=== PATIENT | male | born 1955 | race Caucasian/White ===

== ENCOUNTER 2016-10-23 06:55 | Observation (INO) ==
--- NOTE | 2016-10-23 07:14 | Emergency Department Note ---
Disposition Clinical Impression: Hyponatremia UTI (urinary tract infection) Qualifiers: Urinary tract infection type: acute cystitis Hematuria presence: without hematuria Qualified Code(s): N30.00 - Acute cystitis without hematuria Abdominal pain Qualifiers: Abdominal location: generalized Qualified Code(s): R10.84 - Generalized abdominal pain Disposition: Admitted As Inpatient Condition: Good Referrals: Aliyah Rojas, [employer] [Primary Care Provider] - Forms: Work/School Release, ED Satisfaction Letter Time of Disposition: 08:17 Abdominal Pain HPI - General Chief Complaint: ED Abdominal Pain Stated Complaint: abd pain left to right into back Time Seen by Provider: 10/23/16 07:10 Source: patient Mode of arrival: ambulatory Limitations: no limitations Nursing Notes Reviewed: Yes Vital Signs Reviewed: Yes - History of Present Illness HPI Narrative: 61-year-old white male with abdominal pain for about a half weeks. He indicates the pain is over his entire abdomen. He describes as a soreness. Constant. He states that he does not sleep much at night because of the pain. No change with food intake. He states his appetite has been decreased. No frequency or urgency. No vomiting, diarrhea, or constipation. Pt Subjective Complaint: abdominal pain Onset (ago): week(s) Consistency: constant (Chery a half) Location: diffuse Pain Severity: moderate Pain Scale: 6 Quality: other (Soreness) Radiation: none Migration to: no migration Improves with: nothing Worsens with: nothing Associated symptoms: Reports: denies other symptoms Treatments prior to arrival: none - Related Data Allergies Allergy/AdvReac Type Severity Reaction Status Date / Time No Known Allergies Allergy Verified 10/23/16 06:57 All systems ED: reviewed and negative except as stated. Constitutional: Denies: fever, chills Cardiovascular: Denies: chest pain Respiratory: Denies: cough, dyspnea Gastrointestinal: Reports: abdominal pain. Denies: nausea, vomiting, diarrhea, constipation Genitourinary: Denies: urgency, dysuria, frequency Musculoskeletal: Denies: back pain Abdominal Pain PMH - Past Medical History Medical history: Reports: coronary artery disease, GERD, hypertension Psychiatric history: Reports: no psych history - Social History Smoking status: Former smoker Alcohol use: Reports: occasionally Drug use: Reports: none Physical Exam - General Limitations: no limitations General appearance: alert, in no apparent distress - Head Head exam: atraumatic, normocephalic - Eye Eye exam: Present: PERRL, EOMI. Absent: scleral icterus, conjunctival injection - ENT ENT exam: normal oropharynx, mucous membranes moist - Neck Neck exam: Present: normal inspection, full ROM, trachea midline. Absent: lymphadenopathy - Respiratory Respiratory exam: Present: normal lung sounds bilaterally. Absent: respiratory distress, wheezes - Cardiovascular Cardiovascular exam: Present: regular rate, normal rhythm, normal heart sounds - Abdominal Exam Abdominal exam: Present: soft, tenderness, normal bowel sounds. Absent: distention, guarding, rebound, organomegaly, mass - Extremities Exam Extremities exam: Present: normal inspection, full ROM, normal capillary refill. Absent: calf tenderness - Back Exam Back exam: Absent: CVA tenderness (R), CVA tenderness (L) - Neurological Exam Neurological exam: Present: alert, oriented X3, normal gait - Psychiatric Psychiatric exam: Present: normal affect, normal mood - Skin Skin exam: Present: warm, dry, intact, normal color. Absent: cyanosis, diaphoresis Course - Reevaluation(s) Reevaluation #1: Discussed with Dr. Pang. He is accepted the patient for admission. Time: 08:15 Vital Signs Temperature 97.6 F 10/23/16 06:57 Pulse Rate 110 10/23/16 06:57 Respiratory Rate 18 10/23/16 06:57 Blood Pressure 127/83 10/23/16 06:57 O2 Sat by Pulse Oximetry 99 10/23/16 06:57 Temperature 97.6 F 10/23/16 07:00 Pulse Rate 110 10/23/16 07:00 Respiratory Rate 18 10/23/16 07:00 Blood Pressure 127/83 10/23/16 07:00 O2 Sat by Pulse Oximetry 99 10/23/16 07:00 Oxygen Delivery Oxygen Delivery Room Air Abdominal Pain - MDM Narrative Medical decision making narrative: Differential includes but is not limited to irritable bowel syndrome, pancreatitis, cholecystitis, pancreatitis, small bowel obstruction, gastritis, peptic ulcer disease. The patient has a significantly decrease sodium of 115. This is likely the cause of his diffuse discomfort in his abdomen and back, although I cannot rule out positive urine as a contributing factor. He also has cholelithiasis, and I cannot rule out biliary colic as a contributing factor. His sodium is certainly low enough that he reports hospitalization and sodium replacement. The etiology of his hyponatremia is likely related to the hydrochlorothiazide that he is currently taking. Dr. Pang. He is accepted the patient for admission. IV normal saline has been initiated. Rocephin has been ordered. - Lab Data Lab results reviewed: Yes I reviewed the patient's lab results. Result diagrams: 10/23/16 07:25 10/23/16 07:25 Lab Results 10/23/16 10/23/16 10/23/16 Range/Units 07:25 07:25 07:31 WBC 7.5 (4.3-11.1) K/mcL RBC 3.53 L (4.19-5.50) M/mcL Hgb 12.5 L (12.9-16.9) g/dL Hct 33.8 L (37.5-50.1) % MCV 95.8 (83.0-100.0) fL MCH 35.4 H (28.0-33.3) pg MCHC 37.0 H (31.6-35.5) g/dL RDW 12.8 (11.5-14.5) % Plt Count 152 (140-400) K/mcL MPV 7.9 L (9.4-12.4) fL Immature Gran % 0.7 (0-4) % Seg Neutrophils % 74.4 % Lymphocytes % 12.4 % Monocytes % 10.4 % Eosinophils % 1.6 % Basophils % 0.5 % Neutrophils # 5.6 (1.6-8.9) K/mcL Lymphocytes # 0.9 (0.6-4.6) K/mcL Monocytes # 0.8 (0.0-1.3) K/mcL Eosinophils # 0.1 (0.0-0.6) K/mcL Basophils # 0.0 (0.0-0.2) K/mcL Sodium 115 L* (136-145) mEq/L Potassium 4.0 (3.5-4.5) mEq/L Chloride 80 L (98-109) mEq/L Carbon Dioxide 22 (19-29) mEq/L BUN 10 (8-26) mg/dL Creatinine 0.64 L (0.72-1.25) mg/dL Est GFR ( Amer) > 60 (> 60) Est GFR (Non-Af Amer) > 60 (> 60) BUN/Creatinine Ratio 16 (6-26) Glucose 100 H (70-99) mg/dL Calculated Osmolality 239 L (280-300) Calcium 8.8 (8.6-10.8) mg/dL Total Bilirubin 1.7 H (0.2-1.2) mg/dL AST 52 H (5-34) Units/L ALT 33 (0-55) Units/L Alkaline Phosphatase 57 (38-126) Units/L Serum Total Protein 6.8 (6.0-8.3) g/dL Albumin 3.4 L (3.5-5.0) g/dL Globulin 3.4 (2.4-3.5) g/dL Albumin/Globulin Ratio 1.0 L (1.1-2.2) Lipase 44 (8-78) Units/L Urine Color Yellow (Yellow) Urine Clarity Clear (Clear) Urine pH 6.5 (5.0-8.0) pH Units Ur Specific [place] <= 1.005 L (1.010-1.025) Urine Protein Negative (Neg-Trace) mg/dL Urine Glucose (UA) Normal (Normal) mg/dL Urine Ketones Trace H (Negative) mg/dL Urine Blood Negative (Negative) Urine Nitrite Positive A (Negative) Urine Bilirubin Negative (Negative) Urine Urobilinogen Normal (Normal) mg/dL Ur Leukocyte Esterase Negative (Negative) Urine Microscopic WBC 0-3 (0-3) per hpf Ur Squamous Epith Cells Few (None-Few) per lpf Urine Bacteria Few (None-Few) per hpf Urine Mucus Few (Few) Ur Culture Indicated? YES A (NO) - Radiology Data Radiology results reviewed: Yes I reviewed the patient's radiology results. ITS Impressions Abdomen/Pelvis CT 10/23/16 07:11 IMPRESSION: Nodular contour of the liver which can be seen in cirrhosis. Cholelithiasis without evidence of acute cholecystitis. Mild edema within the mesentery of the lower anterior abdomen slightly more prominent on the right. No colonic wall thickening or other findings to suggest underlying colitis. Skin thickening along the anterior lower abdominal wall with mild inflammatory change of underlying fat. Findings may represent a cellulitis. Small fat containing umbilical hernia. Diverticulosis without evidence of acute diverticulitis. D/ / Nivia Melendez MD / Nivia Melendez MD Interpreting Provider: Nivia Melendez MD
[2016-10-23 07:31] LABS: Basophils % 0.5 %; Eosinophils # 0.1 K/mcL (0.0-0.6); Eosinophils % 1.6 %; Hematocrit 33.8 % (37.5-50.1); Hemoglobin 12.5 g/dL (12.9-16.9); Immature Granulocytes % 0.7 % (0-4); Lymphocytes # 0.9 K/mcL (0.6-4.6); Lymphocytes % 12.4 %; Mean Corpuscular Hemoglobin 35.4 pg (28.0-33.3); Mean Corpuscular Volume 95.8 fL (83.0-100.0); Mean Platelet Volume 7.9 fL (9.4-12.4); Monocytes # 0.8 K/mcL (0.0-1.3); Monocytes % 10.4 %; Neutrophils # 5.6 K/mcL (1.6-8.9); Platelet Count 152 K/mcL (140-400); Red Blood Count 3.53 M/mcL (4.19-5.50); Red Cell Distribution Width 12.8 % (11.5-14.5); Segmented Neutrophils % 74.4 %
[2016-10-23 07:46] LABS: Bilirubin,Urine Negative (Negative); Blood,Urine Negative (Negative); Clarity,Urine Clear (Clear); Color,Urine Yellow (Yellow); Glucose,Urine (UA) Normal (Normal); Ketones,Urine Trace mg/dL (Negative); Leukocyte Esterase,Urine Negative (Negative); Nitrite,Urine Positive (Negative); PH,Urine 6.5 pH Units (5.0-8.0); Protein,Urine Negative (Neg-Trace); Specific Gravity,Urine <= 1.005 (1.010-1.025); Urobilinogen,Urine Normal (Normal)
[2016-10-23 07:52] LABS: Alanine Aminotransferase 33 Units/L (0-55); Albumin 3.4 g/dL (3.5-5.0); Alkaline Phosphatase 57 Units/L (38-126); Aspartate Amino Transferase 52 Units/L (5-34); BUN/Creatinine Ratio 16 (6-26); Bilirubin,Total 1.7 mg/dL (0.2-1.2); Blood Urea Nitrogen 10 mg/dL (8-26); Calcium 8.8 mg/dL (8.6-10.8); Carbon Dioxide 22 mEq/L (19-29); Chloride 80 mEq/L (98-109); Globulin 3.4 g/dL (2.4-3.5); Glucose 100 mg/dL (70-99); Lipase 44 Units/L (8-78); Osmolality,Calculated 239 (280-300); Total Protein 6.8 g/dL (6.0-8.3); eGFR For African Americans > 60 (> 60); eGFR For Non-African Americans > 60 (> 60)
[2016-10-23 07:55] LABS: Sodium 115 mEq/L (136-145)
[2016-10-23 07:56] LABS: WBC,Urine 0-3 per hpf (0-3)
[2016-10-23 07:57] LABS: Bacteria,Urine Few per hpf (None-Few); Mucus,Urine Few (Few); Squamous Epithelial Cell,Urine Few per lpf (None-Few)
[2016-10-23] MEDS ORDERED: 0.9 % Sodium Chloride 1,000 ML IVC SCH ×3 (08:15→08:38)
[2016-10-23] MEDS ORDERED: Naloxone 0.4 MG/ML INJ IVP PRN (08:38)
[2016-10-23] MEDS: 0.9 % Sodium Chloride 1,000 ML IVC SCH (13:28)
--- NOTE | 2016-10-23 14:15 | Internal Med History&Physical ---
Date of Encounter: 10/23/16 Time of Encounter: 12:15 Assessment and Plan (1) Abdominal pain Current visit: Yes Status: Acute Etiology not obvious at this time. There seems to be at least some abdominal wall component. Continue home dose of Percocet at this time. Qualifiers: Abdominal location: generalized Qualified Code(s): R10.84 - Generalized abdominal pain (2) Hyponatremia Current visit: Yes Status: Acute We will give normal saline and hold HCTZ. Recheck labs in a.m. (3) Anemia Current visit: Yes Status: Acute We will order anemia testing in a.m. Qualifiers: Anemia type: unspecified type Qualified Code(s): D64.9 - Anemia, unspecified Internal Medicine - H&P: HPI Chief complaint: Abdominal pain Admitted From: Home Plans for Post Hospital Care: Home History of present illness: Mr. Chauhan is a 61 year old male who came to the emergency room stating he had abdominal discomfort onset approximately 2 weeks previous. He describes it as a mid abdominal pain that radiated around his sides to his back. When it did not improve and seemed to be worsening slightly he decided to come to emergency room. He was evaluated and found to have hyponatremia with sodium level 115. He was admitted to [facility] floor for ongoing care needs. He denies previous similar pains. He reports no change in his bowel movements or appetite. He has had no injury or trauma. Denies disorders of his liver gallbladder or exocrine pancreas. Past Med Surg Social Fam HX - Past Medical History Medical history: coronary artery disease, CVA, GERD, hypertension, myocardial infarction Psychiatric history: no psych history - Social History Smoking Status: Former smoker Smokeless Tobacco Status: No Alcohol use: occasionally Drug use: none Internal Medicine - H&P: Meds Clopidogrel [Plavix] 75 PO DAILY 10/23/16 [History] Hydrochlorothiazide 25 mg PO DAILY 10/23/16 [History] Lisinopril [Zestril] 2.5 mg PO DAILY 10/23/16 [History] Metoprolol Tartrate [Metoprolol Tartrate] 50 PO QID 10/23/16 [History] Nitroglycerin [Nitrostat] 0.4 mg SL 10/23/16 [History] Oxycodone HCl/Acetaminophen [Percocet 10-325 mg Tablet] 1 each PO Q4HR PRN 10/23 [History] PredniSONE 10 mg PO BIDWM 10/23/16 [History] Ranitidine HCl [Zantac] 300 mg PO BID 10/23/16 [History] Allergies tramadol [From Ultram] Adverse Reaction (Verified 10/23/16 09:57) Dry Mucus Membranes All Systems PM: A 10-system review of systems was performed and is negative for pertinent findings except as documented above in the HPI. Review of systems: Gen.: He states his weight has fluctuated based on quantity of prednisone use. Cardiovascular: He has history of hypertension. He has known ASHD status post AR 2003 with 3 stents placed. He denies heart catheter since stents were placed. He denies chest pains on exertion, DVT or pulmonary emboli Respiratory: He is a lifelong nonsmoker except for occasional cigar. He denies known chronic lung disease. GI: As per history of present illness : He thinks he may have had a kidney stone in the distant past. He denies other kidney bladder prostate disorders Neurologic: He states he had a stroke 2006 but had complete recovery without any permanent neurologic deficit. He denies seizures or other neurologic problems Endocrine: He reports he was borderline diabetic when he was taking steroids the past and gained weight. He also had hyperlipidemia that occurred at this time. He states both of these improved with reduction in steroids and weight loss. He denies thyroid disease. [place] skeletal: He claims a diagnosis of rheumatoid arthritis and ankylosing spondylitis. Review of labs show negative RA and CCP on 05/22/2014. He was HLA -B27 negative. He does complain of degenerative disc disease. Hematology/oncology: He had anemia on emergency room labs but he was unaware of this. He denies internal malignancies. Psychiatric: He denies anxiety depression or other mental health issues. - Constitutional Vitals: Temp Pulse Resp BP Pulse Ox 97.7 F 63 20 159/66 94 10/23/16 09:30 10/23/16 09:30 10/23/16 09:30 10/23/16 09:30 10/23/16 09:30 Exam: Gen.: He is well-developed well-nourished male appears in no severe distress at present time HEENT: Head is atraumatic and normocephalic. Eyes: EOMI. There is no scleral icterus. Mouth: Mucosa is moist. Neck: Supple and nontender. There is no thyromegaly or adenopathy noted. Heart: Regular without murmurs gallops or ectopics. Lungs: No wheezes or crackles are heard. Abdomen: No masses or guarding are noted. There is mild tenderness to palpation diffusely. Extremities: There is 1+ edema of the dorsum of the feet bilaterally. Dorsalis pedis and posttibial pulses are not palpable because of the edema. He does not have classic rheumatoid arthritis changes of his hands. Neurologic: Mental status: He is talkative and a good historian. Cranial nerves : Smile is symmetric. Forehead wrinkles bilaterally. Tongue protrudes midline. EOMI. Motor: There is no pronator drift. Cerebellar: Finger to nose is intact bilaterally. Skin: Warm and dry Internal Med - H&P Results - Labs CBC & Chem 7: 10/23/16 07:25 10/23/16 07:25
[2016-10-23] MEDS: *HR* OxyCODONE/APAP 10/325 TABLET PO PRN ×2 (15:08→19:58)
[2016-10-23] MEDS: Famotidine 20 MG TABLET PO SCH (20:00)
[2016-10-24] MEDS: 0.9 % Sodium Chloride 1,000 ML IVC SCH (00:09)
[2016-10-24] MEDS: *HR* OxyCODONE/APAP 10/325 TABLET PO PRN ×2 (01:41→07:09)
[2016-10-24 06:11] LABS: Basophils % 0.5 %; Eosinophils # 0.1 K/mcL (0.0-0.6); Eosinophils % 1.1 %; Hematocrit 34.4 % (37.5-50.1); Hemoglobin 12.2 g/dL (12.9-16.9); Immature Granulocytes % 0.6 % (0-4); Lymphocytes # 0.6 K/mcL (0.6-4.6); Lymphocytes % 9.2 %; Mean Corpuscular HGB Conc 35.5 g/dL (31.6-35.5); Mean Corpuscular Hemoglobin 35.4 pg (28.0-33.3); Mean Corpuscular Volume 99.7 fL (83.0-100.0); Mean Platelet Volume 7.8 fL (9.4-12.4); Monocytes # 0.7 K/mcL (0.0-1.3); Monocytes % 10.8 %; Platelet Count 152 K/mcL (140-400); Red Blood Count 3.45 M/mcL (4.19-5.50); Red Cell Distribution Width 13.6 % (11.5-14.5); Segmented Neutrophils % 77.8 %
[2016-10-24 06:28] LABS: Alanine Aminotransferase 36 Units/L (0-55); Albumin 3.4 g/dL (3.5-5.0); Albumin/Globulin Ratio 0.9 (1.1-2.2); Alkaline Phosphatase 59 Units/L (38-126); Aspartate Amino Transferase 56 Units/L (5-34); BUN/Creatinine Ratio 10 (6-26); Bilirubin,Total 0.9 mg/dL (0.2-1.2); Blood Urea Nitrogen 6 mg/dL (8-26); Calcium 8.8 mg/dL (8.6-10.8); Carbon Dioxide 23 mEq/L (19-29); Chloride 93 mEq/L (98-109); Globulin 3.6 g/dL (2.4-3.5); Glucose 116 mg/dL (70-99); Osmolality,Calculated 263 (280-300); Potassium 4.1 mEq/L (3.5-4.5); Sodium 127 mEq/L (136-145); eGFR For African Americans > 60 (> 60); eGFR For Non-African Americans > 60 (> 60)
[2016-10-24 06:42] VITALS: BP 132/66
--- NOTE | 2016-10-24 08:33 | Discharge Summary ---
Date of Encounter: 10/25/16 Time of Encounter: 08:28 - Discharge Diagnosis (1) Hyponatremia Priority: Primary Status: Chronic Comments: Pt with history of chronic hyponatremia that was significantly worse than baseline with a serum sodium of 115 at time of presentation. This was thought to be contributing factor of underlying abdominal pain. Thiazide was held and NS administered. Sodium improved to 127 on day of discharge, which was approaching patient baseline of 130-134. Pt was symptomatically improved and eager for discharge. Will hold thiazide at discharge. Importance of healthy diet with avoidance of excess fluids and alcohol discussed. Recommend repeat renal panel in 1 week by PCP to document stability of hyponatremia. (2) UTI (urinary tract infection) Priority: Secondary Status: Resolved Comments: UA consistent with UTI given positive nitrate. Urine culture negative. Will d/c on cipro for 5 additional days to complete a 7 day course. Qualifiers: Urinary tract infection type: acute cystitis Hematuria presence: without hematuria Qualified Code(s): N30.00 - Acute cystitis without hematuria (3) Hypertension Priority: Secondary Status: Chronic Comments: Fair control while admitted. Will increase lisinopril to 5mg given thiazide will be held secondary to hyponatremia. Pt to call PCP if BP > 140/90 on regular basis. Qualifiers: Hypertension type: essential hypertension Qualified Code(s): I10 - Essential (primary) hypertension (4) Abdominal pain Priority: Secondary Status: Acute Comments: Resolved with treatment of UTI and resolution of significant hyponatremia. There was some non-specific signs on inflammation noted on CT scan. Exam is negative for any evidence of cellulitis. Given pt is symptomatically improved, he will be discharged. If symptoms re-occur, he is to contact his PCP for further evaluation. Qualifiers: Abdominal location: generalized Qualified Code(s): R10.84 - Generalized abdominal pain - Discharge Medications Prescriptions: Ciprofloxacin HCl [Cipro] 500 mg PO BID #10 tablet Lisinopril [Zestril] 5 mg PO DAILY #30 tablet Home Medications: Clopidogrel [Plavix] 75 PO DAILY 10/23/16 [History] Nitroglycerin [Nitrostat] 0.4 mg SL 10/23/16 [History] Oxycodone HCl/Acetaminophen [Percocet 10-325 mg Tablet] 1 each PO Q4HR PRN 10/23 [History] Ranitidine HCl [Zantac] 300 mg PO BID 10/23/16 [History] Ciprofloxacin HCl [Cipro] 500 mg PO BID #10 tablet 10/24/16 [Rx] Lisinopril [Zestril] 5 mg PO DAILY #30 tablet 10/24/16 [Rx] Metoprolol [Lopressor] 50 mg PO TID tablet 10/24/16 [Rx] Allergies/Adverse Reactions: Allergies tramadol [From Ultram] Adverse Reaction (Verified 10/23/16 09:57) Dry Mucus Membranes Procedures/tests Complete & Pending: ITS Impressions Abdomen/Pelvis CT 10/23/16 07:11 IMPRESSION: Nodular contour of the liver which can be seen in cirrhosis. Cholelithiasis without evidence of acute cholecystitis. Mild edema within the mesentery of the lower anterior abdomen slightly more prominent on the right. No colonic wall thickening or other findings to suggest underlying colitis. Skin thickening along the anterior lower abdominal wall with mild inflammatory change of underlying fat. Findings may represent a cellulitis. Small fat containing umbilical hernia. Diverticulosis without evidence of acute diverticulitis. D/ / Nviia Melendez MD / Nivia Melendez MD Interpreting Provider: Nivia Melendez MD - Notes to Outpatient Provider Recommend repeat renal panel in 1 week to document stability of serum sodium off thiazide. Date of admission: 10/23/16 08:27 Primary care physician: Aliyah Rojas CNP Consults: None Discharging clinician: Jerod Perez Anticipated date of discharge: 10/24/16 - Patient Status Disposition: Home, Self-Care Condition: Good Functional capacity at discharge: independent ambulation Overall status at discharge: patient is back to baseline - Discharge Instructions Instructions: Urinary Tract Infection in Men (DC), Hyponatremia (DC) Follow Up With: Aliyah Rojas CNP [Primary Care Provider] - 10/29/16 4:30 pm - Diet and Activity Activity: increase activity as tolerated Diet: advance to your usual diet Interval History: Pt has subsequently improved over night and is eager for discharge home. No further abdominal pain. He is ambulating and tolerating po. BMs normal. Hospital course: Mr. Chauhan is a 61 year old male who was admitted from the ER for abdominal pain attributed to hyponatremia and UTI. CT abd/pelvis was performed in ER. His HCTZ was held and NS given along with ceftriaxone for his UTI. Pt subsequently improved with sodium near baseline on time of discharge. Pt was advised to f/u with PCP in 1 week for repeat renal panel and BP check. - Time Spent with Patient Total time spent providing and/or coordinating discharge services: Less than 30 minutes - Constitutional Vitals: Temp Pulse Resp BP Pulse Ox 97.6 F 62 16 132/66 95 10/24/16 06:40 10/24/16 06:40 10/24/16 06:40 10/24/16 06:40 10/24/16 06:40 Exam: Gen: Lying in bed, NAD HEENT: NC, AT Neck: Trachea midline, no mass Pulm: No respiratory distress, CTAB CV: Normal S1 and S2, RRR Abdomen: Soft, ND, NT Ext: No C/C/E Neuro: No appreciable motor/sensor deficits Skin: Warm and dry, no rash Psych: A&Ox3
[2016-10-24] MEDS: Famotidine 20 MG TABLET PO SCH (09:13)
[2016-10-24 10:17] LABS: % Iron Saturation 10 % (20-55); Iron 34 mcg/dL (65-175); Transferrin 246 mg/dL (174-364)
[2016-10-24 11:05] LABS: Ferritin 471 ng/ml (22-275)
[2016-10-24 14:45] LABS: Folate 10.2 ng/mL (7.0-31.4)
== END 2016-10-24 11:27 | disposition home or self-care (01) ==
LOC: EMEROOPIK 06:55 → INPPIK 06:55
PROVIDERS: ADMIT Internal Medicine; ATTEND Internal Medicine

== ENCOUNTER 2016-11-04 13:18 | Inpatient (IN) ==
[2016-11-04] MEDS ORDERED: 0.9 % Sodium Chloride 1,000 ML IVC ONE (14:03)
[2016-11-04] MEDS ORDERED: Ampicillin/Sulbactam 3,000 MG in 0.9 % Sodium Chloride Mini Bag 100 ML IVPB ONE (14:03)
[2016-11-04] MEDS ORDERED: Ondansetron 4 MG/2 ML VIAL IVP ONE (14:05)
--- NOTE | 2016-11-04 14:13 | Emergency Department Note ---
Disposition Clinical Impression: Cellulitis, Has run out of medications Disposition: Admitted As Inpatient Condition: Fair Referrals: Aliyah Rojas, COLLATERAL CLERK [Primary Care Provider] - Forms: ED Satisfaction Letter Time of Disposition: 14:13 (dustin miller) Skin/Abscess/FB HPI Chief complaint: ED Skin/Abscess/Foreign Body Stated complaint: redness , swelling , drainage to feet/legs Time Seen by Provider: 11/04/16 13:45 Source: patient Mode of arrival: ambulatory Limitations: physical limitation Nursing Notes Reviewed: Yes Vital Signs Reviewed: Yes HPI Narrative: Lateral lower extremity swelling and edema pitting difficulty walking patient got drainage from the feet and the legs in addition the patient tells me that he is a narcotic at home but has not been taking in addition to this patient states minimal pain medications while seen by Dr. myers next week Pt Subjective Complaint: lesion, discoloration Tetanus Up to Date: yes Location: LLE, RLE Severity: moderate, severe Severity scale (1-10): 8 Quality: burning, stabbing Consistency: constant Improves with: none Worsens with: none Context: none Associated symptoms: Reports: arthralgias, myalgias. Denies: fever, chills, rigors, itching, nausea, vomiting, malaise, cough, shortness of breath Treatments prior to arrival: antibiotic, prescription analgesic Home Medications Medication Instructions Recorded Confirmed Clopidogrel [Plavix] 75 PO DAILY 10/23/16 Nitroglycerin [Nitrostat] 0.4 mg SL 10/23/16 Oxycodone HCl/Acetaminophen 1 each PO Q4HR PRN 10/23/16 10/23/16 [Percocet 10-325 mg Tablet] Ranitidine HCl [Zantac] 300 mg PO BID 10/23/16 11/04/16 Previous Rx's Medication Instructions Recorded Lisinopril [Zestril] 5 mg PO DAILY #30 tablet 10/24/16 Metoprolol [Lopressor] 50 mg PO TID tablet 10/24/16 Allergies Allergy/AdvReac Type Severity Reaction Status Date / Time tramadol [From Ultram] AdvReac Dry Mucus Verified 10/23/16 09:57 Membranes All systems ED: reviewed and negative except as stated. Constitutional: Denies: fever, chills, weakness Eyes: Denies: eye pain, eye discharge ENT ED: Denies: ear pain, throat pain Cardiovascular: Denies: chest pain Respiratory: Denies: cough, dyspnea, wheezes Gastrointestinal: Denies: abdominal pain, nausea, vomiting Genitourinary: Denies: urgency, dysuria, frequency, hematuria Musculoskeletal: Reports: joint swelling, arthralgia, myalgia Integumentary: Denies: rash, abrasion Neurological: Denies: headache Psychiatric: Denies: anxiety Endocrine: Denies: fatigue Hematological/Lymphatic: Denies: easy bleeding Allergic/Immunologic: Denies: facial swelling Past Medical History - Past Medical History Attestation: Yes The following information was validated with the patient. Source: patient, old records reviewed, nursing notes reviewed Medical history: Reports: arthritis, coronary artery disease, CVA, GERD, hypertension, myocardial infarction Psychiatric history: Reports: no psych history - Social History Smoking Status: Former smoker Smokeless Tobacco Status: No Alcohol use: Reports: occasionally Drug use: Reports: none Physical Exam - General Limitations: physical limitation General appearance: alert, in no apparent distress, anxious - Head Head exam: atraumatic, normocephalic, normal inspection - Eye Eye exam: Present: normal appearance, PERRL, EOMI - ENT ENT exam: normal exam, normal oropharynx, mucous membranes moist, normal external ear exam - Neck Neck exam: Present: normal inspection, full ROM, trachea midline - Chest Chest inspection: Present: normal inspection, symmetric chest wall rise - Respiratory Respiratory exam: Present: normal lung sounds bilaterally - Cardiovascular Cardiovascular exam: Present: regular rate, normal rhythm, normal heart sounds - Abdominal Exam Abdominal exam: Present: soft, Non-Tender, normal bowel sounds. Absent: mass, pulsatile mass - Expanded Upper Extremity Exam Shoulder exam: Present: normal inspection, full ROM Arm exam: Present: normal inspection, full ROM Elbow exam: Present: normal inspection, full ROM Forearm/Wrist exam: Present: normal inspection, full ROM Hand exam: Present: normal inspection, full ROM Vascular exam: Normal: capillary refill, radial pulse - Expanded Lower Extremity Exam Hip/Pelvis exam: Present: normal inspection, full ROM Upper leg exam: Present: normal inspection, full ROM 1 - Edematous pitting edema extending from the knees distally some bruising consistent with Plavix. Area most is red-hot swollen tender to the touch Knee exam: Present: normal inspection, full ROM Lower leg exam: Present: full ROM, tenderness, swelling, ecchymosis Ankle exam: Present: full ROM, tenderness, swelling, ecchymosis, erythema Foot/toe exam: Present: full ROM, tenderness, swelling, ecchymosis, erythema Neurovascular/Tendon exam: Present: other (sig pitting edema) Gait: observed and limited by pain - Back Exam Back exam: Present: normal inspection, full ROM - Neurological Exam Neurological exam: Present: alert, oriented X3, CN II-XII intact - Psychiatric Psychiatric exam: Present: normal affect, normal mood - Skin Skin exam: Present: warm, dry, intact, normal color, other (exception legs as stated) Course Course Narrative: Patient seen and examined patient was explained the [place] automated prescription reporting system in the [facility] in regards to refill medications in addition that he has significant cellulitis lower extremities with pitting edema and he recommended IV antibiotics agreeable admitted for observation for IV antibiotics due to the infection patient is unclear of what antibiotic he should be taking at home Dr. Pang has agreed Vital Signs Temperature 99.2 F 11/04/16 13:35 Pulse Rate 72 11/04/16 13:35 Respiratory Rate 18 11/04/16 13:35 Blood Pressure 160/81 11/04/16 13:35 O2 Sat by Pulse Oximetry 96 11/04/16 13:35 Temperature 99.2 F 11/04/16 13:38 Pulse Rate 72 11/04/16 13:38 Respiratory Rate 18 11/04/16 13:38 Blood Pressure 160/81 11/04/16 13:38 O2 Sat by Pulse Oximetry 96 11/04/16 13:38 Oxygen Delivery Oxygen Delivery Room Air Skin/Abscess/Foreign Body - Differential Diagnosis Likely: cellulitis - Medical Records Medical records reviewed: Yes I reviewed the patient's medical records. - Lab Data Lab results reviewed: Yes I reviewed the patient's lab results. Critical Care Time Critical Care Time: No
[2016-11-04] MEDS ORDERED: Vancomycin 1,000 MG in D5% in Water 250 ML IVPB ONE ×3 (14:21→19:00)
[2016-11-04 14:25] LABS: Basophils # 0.1 K/mcL (0.0-0.2); Eosinophils # 0.1 K/mcL (0.0-0.6); Eosinophils % 0.6 %; Hematocrit 36.5 % (37.5-50.1); Immature Granulocytes % 0.2 % (0-4); Lymphocytes # 1.4 K/mcL (0.6-4.6); Lymphocytes % 17.7 %; Mean Corpuscular HGB Conc 35.6 g/dL (31.6-35.5); Mean Corpuscular Hemoglobin 35.2 pg (28.0-33.3); Mean Corpuscular Volume 98.9 fL (83.0-100.0); Mean Platelet Volume 7.8 fL (9.4-12.4); Monocytes % 12.4 %; Neutrophils # 5.5 K/mcL (1.6-8.9); Platelet Count 228 K/mcL (140-400); Red Blood Count 3.69 M/mcL (4.19-5.50); Red Cell Distribution Width 13.6 % (11.5-14.5); Segmented Neutrophils % 68.1 %
[2016-11-04] MEDS: *HR* HYDROmorphone (PF) 1 MG/ML SYRINGE IVP ONE ×2 (14:29→14:30)
[2016-11-04 14:31] LABS: INR 1.2; Prothrombin Time 13.4 Seconds (9.4-12.1)
[2016-11-04 14:33] LABS: Activated Partial Thrombo Time 35.4 Seconds (26.0-36.0)
[2016-11-04 14:40] LABS: BUN/Creatinine Ratio 8 (6-26); Calcium 9.2 mg/dL (8.6-10.8); Carbon Dioxide 23 mEq/L (19-29); Chloride 97 mEq/L (98-109); Glucose 100 mg/dL (70-99); Osmolality,Calculated 269 (280-300); Potassium 3.7 mEq/L (3.5-4.5); Sodium 131 mEq/L (136-145); eGFR For African Americans > 60 (> 60); eGFR For Non-African Americans > 60 (> 60)
[2016-11-04 14:41] LABS: Blood Urea Nitrogen 5 mg/dL (8-26)
[2016-11-04] MEDS ORDERED: *HR* OxyCODONE Immed Rel 5 MG TABLET PO PRN (14:51)
[2016-11-04] MEDS ORDERED: Ondansetron ODT 4 MG TAB.RAPDIS SL PRN (14:51)
[2016-11-04] MEDS ORDERED: Naloxone 0.4 MG/ML INJ IVP PRN (14:51)
--- NOTE | 2016-11-04 18:13 | Internal Med History&Physical ---
Date of Encounter: 11/04/16 Time of Encounter: 17:40 Assessment and Plan (1) Cellulitis Current visit: Yes Status: Acute He has been started on IV vancomycin and IV doxycycline. Lactobacillus will be ordered. Additional labs will be done in a.m. Qualifiers: Site of cellulitis: extremity Site of cellulitis of extremity: lower extremity Laterality: unspecified laterality Qualified Code(s): L03.119 - Cellulitis of unspecified part of limb (2) Edema Current visit: Yes Status: Acute We will order BN peptide in a.m. Will give IV Lasix now to facilitate diuresis Qualifiers: Edema type: unspecified Qualified Code(s): R60.9 - Edema, unspecified (3) Hypertension Current visit: No Status: Chronic Continue Lopressor and lisinopril. Qualifiers: Hypertension type: essential hypertension Qualified Code(s): I10 - Essential (primary) hypertension Internal Medicine - H&P: HPI Chief complaint: Leg redness, edema, pain Admitted From: Home Plans for Post Hospital Care: Home History of present illness: Mr. Chauhan is a 61 year old male who came to the emergency room stating he had increasing pain, redness and edema of his lower legs over the preceding week. He been seen by his PCP last week and given a "steroid ointment" for a leg "rash ". He does not know the diagnosis or the name of the ointment. When he did not improve he came to emergency room today. He was felt to have bilateral leg cellulitis and was admitted to [facility] floor for ongoing care needs. He was hospitalized at [facility] approximately 2 weeks ago with abdominal pain and hyponatremia. Hydrochlorothiazide was discontinued and his lisinopril dose was increased to 5 mg daily at discharge. He has not taken prednisone since discharge on 10/24/2016. Past Med Surg Social Fam HX - Past Medical History Medical history: arthritis, coronary artery disease, CVA, GERD, hypertension, myocardial infarction Psychiatric history: no psych history - Social History Smoking Status: Former smoker Smokeless Tobacco Status: No Alcohol use: occasionally Drug use: none Internal Medicine - H&P: Meds Clopidogrel [Plavix] 75 PO DAILY 10/23/16 [History] Nitroglycerin [Nitrostat] 0.4 mg SL 10/23/16 [History] Oxycodone HCl/Acetaminophen [Percocet 10-325 mg Tablet] 1 each PO Q4HR PRN 10/23 [History] Ranitidine HCl [Zantac] 300 mg PO BID 10/23/16 [History] Lisinopril [Zestril] 5 mg PO DAILY #30 tablet 10/24/16 [Rx] Metoprolol [Lopressor] 50 mg PO TID tablet 10/24/16 [Rx] Allergies tramadol [From Ultram] Adverse Reaction (Verified 10/23/16 09:57) Dry Mucus Membranes All Systems PM: A 10-system review of systems was performed and is negative for pertinent findings except as documented above in the HPI. Review of systems: Review of systems from his 10/23/2016 history and physical were reviewed and revised as below. Gen.: He states his weight has fluctuated based on quantity of prednisone use. Cardiovascular: He has history of hypertension. He has known ASHD status post [place] 2003 with 3 stents placed. He denies heart catheter since stents were placed. He denies chest pains on exertion, DVT or pulmonary emboli Respiratory: He is a lifelong nonsmoker except for occasional cigar. He denies known chronic lung disease. GI: His abdominal pain has resolved from last admission. He denies disorders of his liver gallbladder or exocrine pancreas. : He thinks he may have had a kidney stone in the distant past. He denies other kidney bladder prostate disorders Neurologic: He states he had a stroke 2006 but had complete recovery without any permanent neurologic deficit. He denies seizures or other neurologic problems Endocrine: He reports he was borderline diabetic when he was taking steroids the past and gained weight. He also had hyperlipidemia that occurred at this time. He states both of these improved with reduction in steroids and weight loss. He denies thyroid disease. Musk skeletal: He claims a diagnosis of rheumatoid arthritis and ankylosing spondylitis. Review of labs show negative RA and CCP on 05/22/2014. He was HLA -B27 negative. He does complain of degenerative disc disease. He had low vitamin D level of 20 in 2013 Hematology/oncology: He had anemia on emergency room labs last admission but that has resolved on blood work in the emergency room today. He denies internal malignancies. Psychiatric: He denies anxiety depression or other mental health issues. - Constitutional Vitals: Temp Pulse Resp BP Pulse Ox 98.0 F 70 20 189/93 97 11/04/16 16:10 05/16/17 16:10 11/04/16 16:10 11/04/16 16:10 11/04/16 16:10 Exam: Gen.: He is a well-developed well-nourished male who appears in no severe distress at present time HEENT: Head is atraumatic and normocephalic. Eyes: EOMI. There is no scleral icterus. Mouth: Mucosa is moist. Neck: Supple and nontender. There is no thyromegaly or adenopathy noted. Heart: Regular without murmurs gallops or ectopics Lungs: No wheezes or crackles are heard. Abdomen: Soft and nontender. No masses or guarding noted. Extremities: His hands are unremarkable. He has 2-3+ edema of the lower legs and dorsum of the feet bilaterally. He has erythema involving most the skin of his lower legs and feet. A few superficial pustules are seen with some shallow ulcerative areas also noted at various places on his dorsum of the feet. He has numerous linear areas of petechiae on his lower legs. Neurologic: Mental status: He is talkative and a good historian. Cranial nerves : Smile is symmetric. Forehead wrinkles bilaterally. Tongue protrudes midline. EOMI. Motor: There is no pronator drift. Cerebellar: Finger to nose is intact bilaterally. Skin: Warm and dry Internal Med - H&P Results - Labs CBC & Chem 7: 11/04/16 14:15 11/04/16 14:15
[2016-11-04] MEDS: Furosemide 40 MG/4 ML VIAL IVP SCH (18:25)
[2016-11-04] MEDS: *HR* HYDROmorphone (PF) 1 MG/ML SYRINGE IVP PRN ×2 (18:31→22:30)
[2016-11-04] MEDS: Lactobacillus 1 EACH CAP.SPRINK PO SCH (20:07)
[2016-11-04] MEDS: Famotidine 20 MG TABLET PO SCH (20:07)
[2016-11-04] MEDS: *HR* OxyCODONE/APAP 10/325 TABLET PO PRN (20:11)
[2016-11-05] MEDS: *HR* OxyCODONE/APAP 10/325 TABLET PO PRN ×6 (00:19→21:16)
[2016-11-05] MEDS: *HR* HYDROmorphone (PF) 1 MG/ML SYRINGE IVP PRN ×6 (01:33→23:30)
[2016-11-05] MEDS: Doxycycline 100 MG in 0.9 % Sodium Chloride Mini Bag 100 ML IVPB SCH ×2 (05:35→17:18)
[2016-11-05 06:44] LABS: Basophils # 0.1 K/mcL (0.0-0.2); Basophils % 1.2 %; Eosinophils # 0.2 K/mcL (0.0-0.6); Eosinophils % 3.4 %; Hemoglobin 12.1 g/dL (12.9-16.9); Immature Granulocytes % 0.5 % (0-4); Lymphocytes # 1.8 K/mcL (0.6-4.6); Lymphocytes % 26.9 %; Mean Corpuscular HGB Conc 35.6 g/dL (31.6-35.5); Mean Corpuscular Hemoglobin 35.7 pg (28.0-33.3); Mean Corpuscular Volume 100.3 fL (83.0-100.0); Mean Platelet Volume 8.2 fL (9.4-12.4); Monocytes % 14.5 %; Neutrophils # 3.5 K/mcL (1.6-8.9); Platelet Count 223 K/mcL (140-400); Red Blood Count 3.39 M/mcL (4.19-5.50); Segmented Neutrophils % 53.5 %
[2016-11-05 07:08] LABS: Alanine Aminotransferase 17 Units/L (0-55); Albumin 2.9 g/dL (3.5-5.0); Albumin/Globulin Ratio 0.9 (1.1-2.2); Alkaline Phosphatase 68 Units/L (38-126); Aspartate Amino Transferase 29 Units/L (5-34); BUN/Creatinine Ratio 8 (6-26); Bilirubin,Total 0.7 mg/dL (0.2-1.2); Blood Urea Nitrogen 5 mg/dL (8-26); Calcium 8.7 mg/dL (8.6-10.8); Carbon Dioxide 25 mEq/L (19-29); Chloride 96 mEq/L (98-109); Globulin 3.4 g/dL (2.4-3.5); Glucose 119 mg/dL (70-99); Magnesium 1.7 mg/dL (1.6-2.6); Osmolality,Calculated 270 (280-300); Potassium 3.5 mEq/L (3.5-4.5); Sodium 131 mEq/L (136-145); Total Protein 6.3 g/dL (6.0-8.3); eGFR For African Americans > 60 (> 60); eGFR For Non-African Americans > 60 (> 60)
[2016-11-05] MEDS ORDERED: Vancomycin 1,250 MG in D5% in Water 250 ML IVPB SCH (07:30)
[2016-11-05] MEDS: Lactobacillus 1 EACH CAP.SPRINK PO SCH ×2 (08:37→19:43)
[2016-11-05] MEDS: Furosemide 40 MG/4 ML VIAL IVP SCH (08:37)
[2016-11-05] MEDS: Famotidine 20 MG TABLET PO SCH ×2 (08:37→19:43)
[2016-11-05] MEDS: Vancomycin 1,250 MG in D5% in Water 250 ML IVPB SCH ×2 (08:51→21:16)
--- NOTE | 2016-11-05 12:11 | Internal Med Progress Note ---
Date of Encounter: 11/05/16 Time of Encounter: 11:50 - Assessment and plan (1) Cellulitis Current Visit: Yes Status: Acute Assessment and plan: November 05. Continue vancomycin, doxycycline, and lactobacillus. He will need IV antibiotics for at least 2 more days. Qualifiers: Site of cellulitis: extremity Site of cellulitis of extremity: lower extremity Laterality: unspecified laterality Qualified Code(s): L03.119 - Cellulitis of unspecified part of limb (2) Edema Current Visit: Yes Status: Acute Assessment and plan: November 05. BN peptide was elevated at 1539. Continue IV Lasix Qualifiers: Edema type: unspecified Qualified Code(s): R60.9 - Edema, unspecified (3) Hypertension Current Visit: No Status: Chronic Assessment and plan: November 05. Blood pressures are suboptimally controlled. Will increase lisinopril. Qualifiers: Hypertension type: essential hypertension Qualified Code(s): I10 - Essential (primary) hypertension - Subjective Interval history: November 05. He has no new complaints. He states his leg pain is still present despite the use of scheduled Percocet and when necessary Dilaudid - Constitutional Vitals: Temp Pulse Resp BP Pulse Ox 97.9 F 76 18 151/66 98 11/05/16 11:12 11/05/16 11:12 11/05/16 11:12 11/05/16 11:12 11/05/16 11:12 Exam: He appears in no significant distress. Leg edema and erythema are slightly improved. I reviewed his medications and lab results. Internal Medicine: Result - Labs CBC & Chem 7: 11/05/16 06:24 11/05/16 06:24 Labs: Short CBC 11/05/16 Range/Units 06:24 WBC 6.6 (4.3-11.1) K/mcL Hgb 12.1 L (12.9-16.9) g/dL Hct 34.0 L (37.5-50.1) % Plt Count 223 (140-400) K/mcL Neutrophils # 3.5 (1.6-8.9) K/mcL BMP 11/05/16 06:24 Sodium 131 L Potassium 3.5 Chloride 96 L Carbon Dioxide 25 BUN 5 L Creatinine 0.62 L Glucose 119 H Calcium 8.7 Liver Function 11/05/16 Range/Units 06:24 Total Bilirubin 0.7 (0.2-1.2) mg/dL AST 29 (5-34) Units/L ALT 17 (0-55) Units/L Alkaline Phosphatase 68 (38-126) Units/L Albumin 2.9 L (3.5-5.0) g/dL - ABG Interpretation ABG results: PT/INR, D-dimer PT 13.4 Seconds (9.4-12.1) H 11/04/16 14:15 Consult Discharge Plan - Plan Referrals: Aliyah Rojas, SHAILESH [Primary Care Provider] - 1 week
[2016-11-06] MEDS: *HR* OxyCODONE/APAP 10/325 TABLET PO PRN ×6 (02:31→22:12)
[2016-11-06] MEDS: *HR* HYDROmorphone (PF) 1 MG/ML SYRINGE IVP PRN ×5 (04:33→20:30)
[2016-11-06 06:22] LABS: BUN/Creatinine Ratio 9 (6-26); Calcium 8.8 mg/dL (8.6-10.8); Carbon Dioxide 25 mEq/L (19-29); Chloride 95 mEq/L (98-109); Glucose 87 mg/dL (70-99); Osmolality,Calculated 269 (280-300); Potassium 3.6 mEq/L (3.5-4.5); Sodium 131 mEq/L (136-145); eGFR For African Americans > 60 (> 60); eGFR For Non-African Americans > 60 (> 60)
[2016-11-06] MEDS: Doxycycline 100 MG in 0.9 % Sodium Chloride Mini Bag 100 ML IVPB SCH ×2 (06:30→18:28)
[2016-11-06 06:32] LABS: Blood Urea Nitrogen 5 mg/dL (8-26)
[2016-11-06 07:08] LABS: Basophils # 0.1 K/mcL (0.0-0.2); Basophils % 1.1 %; Eosinophils # 0.3 K/mcL (0.0-0.6); Eosinophils % 3.7 %; Hematocrit 35.7 % (37.5-50.1); Hemoglobin 12.7 g/dL (12.9-16.9); Immature Granulocytes % 0.5 % (0-4); Lymphocytes # 1.9 K/mcL (0.6-4.6); Lymphocytes % 22.7 %; Mean Corpuscular HGB Conc 35.6 g/dL (31.6-35.5); Mean Corpuscular Hemoglobin 35.7 pg (28.0-33.3); Mean Corpuscular Volume 100.3 fL (83.0-100.0); Mean Platelet Volume 8.5 fL (9.4-12.4); Monocytes # 1.2 K/mcL (0.0-1.3); Monocytes % 14.2 %; Neutrophils # 4.7 K/mcL (1.6-8.9); Platelet Count 259 K/mcL (140-400); Red Blood Count 3.56 M/mcL (4.19-5.50); Red Cell Distribution Width 14.2 % (11.5-14.5); Segmented Neutrophils % 57.8 %
[2016-11-06] MEDS: Famotidine 20 MG TABLET PO SCH ×2 (08:26→20:30)
[2016-11-06] MEDS: Lactobacillus 1 EACH CAP.SPRINK PO SCH ×2 (08:26→20:30)
[2016-11-06] MEDS: Furosemide 40 MG/4 ML VIAL IVP SCH (08:27)
[2016-11-06] MEDS: Vancomycin 1,250 MG in D5% in Water 250 ML IVPB SCH ×2 (10:35→20:31)
--- NOTE | 2016-11-06 15:55 | Internal Med Progress Note ---
Date of Encounter: 11/06/16 Time of Encounter: 15:45 - Assessment and plan (1) Cellulitis Current Visit: Yes Status: Acute Assessment and plan: November 05. Continue vancomycin, doxycycline, and lactobacillus. He will need IV antibiotics for at least 2 more days. Qualifiers: Site of cellulitis: extremity Site of cellulitis of extremity: lower extremity Laterality: unspecified laterality Qualified Code(s): L03.119 - Cellulitis of unspecified part of limb (2) Edema Current Visit: Yes Status: Acute Assessment and plan: November 05. BN peptide was elevated at 1539. Continue IV Lasix November 06. Improved. BN peptide is 720 today. Continue IV Lasix. Qualifiers: Edema type: unspecified Qualified Code(s): R60.9 - Edema, unspecified (3) Hypertension Current Visit: No Status: Chronic Assessment and plan: November 05. Blood pressures are suboptimally controlled. Will increase lisinopril. November 06. Continue Lopressor and lisinopril. Qualifiers: Hypertension type: essential hypertension Qualified Code(s): I10 - Essential (primary) hypertension - Subjective Interval history: November 05. He has no new complaints. He states his leg pain is still present despite the use of scheduled Percocet and when necessary Dilaudid November 06. He has no new complaints and feels better overall. - Constitutional Vitals: Temp Pulse Resp BP Pulse Ox 97.5 F L 75 16 160/80 95 11/06/16 11:12 11/06/16 11:12 11/06/16 11:12 11/06/16 11:12 11/06/16 11:12 Exam: He is resting comfortably in bed. His legs show decreased edema and erythema. I reviewed his medications and lab results. Internal Medicine: Result - Labs CBC & Chem 7: 11/06/16 04:33 11/06/16 04:33 Labs: Short CBC 11/06/16 Range/Units 04:33 WBC 8.2 (4.3-11.1) K/mcL Hgb 12.7 L (12.9-16.9) g/dL Hct 35.7 L (37.5-50.1) % Plt Count 259 (140-400) K/mcL Neutrophils # 4.7 (1.6-8.9) K/mcL BMP 11/06/16 04:33 Sodium 131 L Potassium 3.6 Chloride 95 L Carbon Dioxide 25 BUN 5 L Creatinine 0.56 L Glucose 87 Calcium 8.8 - ABG Interpretation ABG results: PT/INR, D-dimer PT 13.4 Seconds (9.4-12.1) H 11/04/16 14:15 Consult Discharge Plan - Plan Referrals: Aliyah Rojas, SHAILESH [Primary Care Provider] - 1 week
[2016-11-07] MEDS: *HR* HYDROmorphone (PF) 1 MG/ML SYRINGE IVP PRN ×6 (00:28→20:45)
[2016-11-07] MEDS: *HR* OxyCODONE/APAP 10/325 TABLET PO PRN ×6 (02:28→23:34)
[2016-11-07] MEDS: Doxycycline 100 MG in 0.9 % Sodium Chloride Mini Bag 100 ML IVPB SCH ×2 (06:24→18:33)
[2016-11-07] MEDS: Famotidine 20 MG TABLET PO SCH ×2 (08:38→20:44)
[2016-11-07] MEDS: Lactobacillus 1 EACH CAP.SPRINK PO SCH ×2 (08:38→20:44)
[2016-11-07] MEDS: Furosemide 40 MG/4 ML VIAL IVP SCH (08:39)
[2016-11-07] MEDS: Vancomycin 1,250 MG in D5% in Water 250 ML IVPB SCH ×2 (09:36→20:44)
[2016-11-07] MEDS ORDERED: Psyllium 1 PACKET POWD.PACK PO ONE (12:40)
--- NOTE | 2016-11-07 13:30 | Internal Med Progress Note ---
Date of Encounter: 11/07/16 Time of Encounter: 12:35 - Assessment and plan (1) Cellulitis Current Visit: Yes Status: Acute Assessment and plan: November 05. Continue vancomycin, doxycycline, and lactobacillus. He will need IV antibiotics for at least 2 more days. November 07. Will order CT of the feet to rule out abscess. Continue IV antibiotics with lactobacillus. Qualifiers: Site of cellulitis: extremity Site of cellulitis of extremity: lower extremity Laterality: unspecified laterality Qualified Code(s): L03.119 - Cellulitis of unspecified part of limb (2) Edema Current Visit: Yes Status: Acute Assessment and plan: November 05. BN peptide was elevated at 1539. Continue IV Lasix November 06. Improved. BN peptide is 720 today. Continue IV Lasix. Qualifiers: Edema type: unspecified Qualified Code(s): R60.9 - Edema, unspecified (3) Hypertension Current Visit: No Status: Chronic Assessment and plan: November 05. Blood pressures are suboptimally controlled. Will increase lisinopril. November 06. Continue Lopressor and lisinopril. November 07. Blood pressure show significant fluctuation. Continue present dose lisinopril and Lopressor Qualifiers: Hypertension type: essential hypertension Qualified Code(s): I10 - Essential (primary) hypertension - Subjective Interval history: November 05. He has no new complaints. He states his leg pain is still present despite the use of scheduled Percocet and when necessary Dilaudid November 06. He has no new complaints and feels better overall. November 07. He complains of constipation. He states he has pain in his feet when he gets up to walk. - Constitutional Vitals: Temp Pulse Resp BP Pulse Ox 97.9 F 64 16 124/63 94 11/07/16 10:53 11/07/16 10:53 11/07/16 10:53 11/07/16 10:53 11/07/16 10:53 Exam: There appears to be less edema in his lower legs. He still has dorsal foot edema with visualized small areas of subcutaneous pus. There is superficial ulceration on both feet seen not significantly changed. I reviewed his medications and lab results. Internal Medicine: Result - Labs CBC & Chem 7: 11/06/16 04:33 11/06/16 04:33 - ABG Interpretation ABG results: PT/INR, D-dimer PT 13.4 Seconds (9.4-12.1) H 11/04/16 14:15 Consult Discharge Plan - Plan Referrals: Aliyah Rojas, SHAILESH [Primary Care Provider] - 1 week
[2016-11-08] MEDS: *HR* HYDROmorphone (PF) 1 MG/ML SYRINGE IVP PRN ×4 (02:49→16:09)
[2016-11-08] MEDS: Doxycycline 100 MG in 0.9 % Sodium Chloride Mini Bag 100 ML IVPB SCH (05:10)
[2016-11-08] MEDS: *HR* OxyCODONE/APAP 10/325 TABLET PO PRN ×3 (05:10→13:40)
[2016-11-08 05:57] LABS: Basophils # 0.1 K/mcL (0.0-0.2); Basophils % 1.4 %; Eosinophils # 0.4 K/mcL (0.0-0.6); Eosinophils % 5.4 %; Hematocrit 36.1 % (37.5-50.1); Hemoglobin 12.8 g/dL (12.9-16.9); Immature Granulocytes % 0.4 % (0-4); Lymphocytes # 1.8 K/mcL (0.6-4.6); Lymphocytes % 25.4 %; Mean Corpuscular HGB Conc 35.5 g/dL (31.6-35.5); Mean Corpuscular Hemoglobin 35.2 pg (28.0-33.3); Mean Corpuscular Volume 99.2 fL (83.0-100.0); Mean Platelet Volume 8.2 fL (9.4-12.4); Monocytes # 1.2 K/mcL (0.0-1.3); Neutrophils # 3.5 K/mcL (1.6-8.9); Platelet Count 261 K/mcL (140-400); Red Blood Count 3.64 M/mcL (4.19-5.50); Red Cell Distribution Width 13.7 % (11.5-14.5); Segmented Neutrophils % 50.4 %
[2016-11-08 06:11] LABS: BUN/Creatinine Ratio 9 (6-26); Calcium 8.9 mg/dL (8.6-10.8); Carbon Dioxide 25 mEq/L (19-29); Chloride 91 mEq/L (98-109); Glucose 97 mg/dL (70-99); Osmolality,Calculated 263 (280-300); Potassium 3.5 mEq/L (3.5-4.5); Sodium 128 mEq/L (136-145); Uric Acid 1.8 mg/dL (3.5-7.2); eGFR For African Americans > 60 (> 60); eGFR For Non-African Americans > 60 (> 60)
[2016-11-08 06:36] LABS: Blood Urea Nitrogen 5 mg/dL (8-26)
[2016-11-08] MEDS: Famotidine 20 MG TABLET PO SCH (07:32)
[2016-11-08] MEDS: Lactobacillus 1 EACH CAP.SPRINK PO SCH (07:32)
[2016-11-08] MEDS: Furosemide 40 MG/4 ML VIAL IVP SCH (07:33)
[2016-11-08] MEDS: Vancomycin 1,250 MG in D5% in Water 250 ML IVPB SCH (09:03)
[2016-11-08 15:08] VITALS: BP 153/67
--- NOTE | 2016-11-08 15:08 | Discharge Summary ---
Date of Encounter: 11/08/16 Time of Encounter: 14:55 - Discharge Diagnosis (1) Cellulitis Priority: Primary Status: Acute Qualifiers: Site of cellulitis: extremity Site of cellulitis of extremity: lower extremity Laterality: unspecified laterality Qualified Code(s): L03.119 - Cellulitis of unspecified part of limb (2) Edema Priority: Secondary Status: Acute Qualifiers: Edema type: unspecified Qualified Code(s): R60.9 - Edema, unspecified (3) Hypertension Priority: Secondary Status: Chronic Qualifiers: Hypertension type: essential hypertension Qualified Code(s): I10 - Essential (primary) hypertension - Discharge Medications Home Medications: Clopidogrel [Plavix] 75 PO DAILY 10/23/16 [History] Nitroglycerin [Nitrostat] 0.4 mg SL 10/23/16 [History] Oxycodone HCl/Acetaminophen [Percocet 10-325 mg Tablet] 1 each PO Q4HR PRN 10/23 [History] Ranitidine HCl [Zantac] 300 mg PO BID 10/23/16 [History] Metoprolol [Lopressor] 50 mg PO TID tablet 10/24/16 [Rx] Doxycycline 100 mg IVPB Q12HR vial 11/08/16 [Rx] Furosemide [Lasix] 40 mg IVP DAILY vial 11/08/16 [Rx] HYDROmorphone (PF) [Dilaudid] 1 mg IVP Q4HR PRN #0 syringe 11/08/16 [Rx] Lactobacillus [Culturelle] 1 each PO BID cap.sprink 11/08/16 [Rx] Lisinopril [Zestril] 20 mg PO DAILY tablet 11/08/16 [Rx] Naloxone [Narcan] 0.4 mg IVP Q2MIN PRN #0 inj 11/08/16 [Rx] OxyCODONE/APAP 10/325 [Percocet 10/325 MG] 1 each PO Q4H PRN #0 tablet 11/08/16 [Rx] Vancomycin [Vancocin] 1,250 mg IVPB Q12H vial 11/08/16 [Rx] Allergies/Adverse Reactions: Allergies tramadol [From Ultram] Adverse Reaction (Verified 10/23/16 09:57) Dry Mucus Membranes Procedures/tests Complete & Pending: Procedures Performed prior 72 hours Category Date Time Status CT foot LT wo con [CT] Routine Cat Scan 11/07/16 12:[address] foot RT wo con [CT] Routine Cat Scan 11/07/16 12:43 Completed Date of admission: 11/05/16 18:42 Primary care physician: Aliyah Rojas CNP - Patient Status Disposition: Transfer Hospital Swing Bed Condition: Fair Functional capacity at discharge: independent ambulation Overall status at discharge: patient is progressing back to baseline - Discharge Instructions - Diet and Activity Activity: resume usual activities as tolerated Diet: advance to your usual diet Hospital course: Mr. Chauhan is a 61 year old male who came to the emergency room stating he had increasing pain, redness and edema of his lower legs over the preceding week. He been seen by his PCP last week and given a "steroid ointment" for a leg "rash ". He does not know the diagnosis or the name of the ointment. When he did not improve he came to emergency room today. He was felt to have bilateral leg cellulitis and was admitted to [facility] floor for ongoing care needs. Initial orders were written by the emergency room physician. I saw him on November 04 and performed a history and physical. He was started on IV vancomycin and doxycycline. Lactobacillus was also given. He had gradual improvement in his edema and erythema. IV Lasix was given with good diuresis. His BN peptide improved to 607 by the day of discharge to swing bed with significant lessening of overall leg edema. Zinc level returned low at 39. He will be started on zinc sulfate. On November 08 arrangements were complete for him to be discharged to swing bed where he will continues to receive IV antibiotics and IV Lasix. - Time Spent with Patient Total time spent providing and/or coordinating discharge services: - Constitutional Vitals: Temp Pulse Resp BP Pulse Ox 98.0 F 72 17 129/67 93 11/08/16 12:16 11/08/16 12:16 11/08/16 12:16 11/08/16 12:16 11/08/16 12:16
[2016-11-10] MEDS ORDERED: Aminoglycoside Consult 1 EACH MC ONE (08:25)
== END 2016-11-08 16:16 | disposition other institution (70) | DRG 603 ==
LOC: EMEROOPIK 13:18 → INPPIK 13:18
PROVIDERS: ADMIT Internal Medicine; ATTEND Internal Medicine

== ENCOUNTER 2016-11-08 16:29 | Inpatient (IN) ==
[2016-11-08] MEDS ORDERED: Nitroglycerin 0.4 MG TAB.SUBL SL PRN (16:57)
[2016-11-08] MEDS ORDERED: Naloxone 0.4 MG/ML INJ IVP PRN (17:02)
[2016-11-08] MEDS: *HR* OxyCODONE/APAP 10/325 TABLET PO PRN ×2 (18:12→23:35)
[2016-11-08] MEDS: Doxycycline 100 MG in 0.9 % Sodium Chloride Mini Bag 100 ML IVPB SCH (18:12)
[2016-11-08] MEDS: Lactobacillus 1 EACH CAP.SPRINK PO SCH (20:57)
[2016-11-08] MEDS: Famotidine 20 MG TABLET PO SCH (20:57)
[2016-11-08] MEDS: *HR* HYDROmorphone (PF) 1 MG/ML SYRINGE IVP PRN (20:58)
[2016-11-08] MEDS: Vancomycin 1,250 MG in D5% in Water 250 ML IVPB SCH (20:59)
[2016-11-09] MEDS: *HR* HYDROmorphone (PF) 1 MG/ML SYRINGE IVP PRN ×5 (01:50→21:36)
[2016-11-09] MEDS: *HR* OxyCODONE/APAP 10/325 TABLET PO PRN ×5 (06:03→23:23)
[2016-11-09] MEDS: Doxycycline 100 MG in 0.9 % Sodium Chloride Mini Bag 100 ML IVPB SCH ×2 (06:05→17:31)
[2016-11-09 06:40] LABS: Basophils # 0.1 K/mcL (0.0-0.2); Basophils % 1.3 %; Eosinophils # 0.4 K/mcL (0.0-0.6); Eosinophils % 4.9 %; Hematocrit 37.2 % (37.5-50.1); Hemoglobin 13.2 g/dL (12.9-16.9); Immature Granulocytes % 0.4 % (0-4); Lymphocytes # 1.8 K/mcL (0.6-4.6); Lymphocytes % 24.2 %; Mean Corpuscular HGB Conc 35.5 g/dL (31.6-35.5); Mean Corpuscular Hemoglobin 34.9 pg (28.0-33.3); Mean Corpuscular Volume 98.4 fL (83.0-100.0); Mean Platelet Volume 8.3 fL (9.4-12.4); Monocytes # 1.2 K/mcL (0.0-1.3); Monocytes % 16.2 %; Platelet Count 306 K/mcL (140-400); Red Blood Count 3.78 M/mcL (4.19-5.50); Red Cell Distribution Width 13.7 % (11.5-14.5)
[2016-11-09 06:45] LABS: INR 1.3
[2016-11-09 06:47] LABS: Activated Partial Thrombo Time 36.6 Seconds (26.0-36.0)
[2016-11-09 06:54] LABS: eGFR For African Americans > 60 (> 60); eGFR For Non-African Americans > 60 (> 60)
[2016-11-09] MEDS: Famotidine 20 MG TABLET PO SCH ×2 (08:39→21:37)
[2016-11-09] MEDS: Furosemide 40 MG/4 ML VIAL IVP SCH (08:39)
[2016-11-09] MEDS: Lactobacillus 1 EACH CAP.SPRINK PO SCH ×2 (08:39→21:36)
[2016-11-09] MEDS: Lisinopril 20 MG TABLET PO SCH (08:39)
[2016-11-09] MEDS: Vancomycin 1,250 MG in D5% in Water 250 ML IVPB SCH ×2 (10:05→21:37)
--- NOTE | 2016-11-09 12:59 | Internal Med Progress Note ---
Date of Encounter: 11/09/16 Time of Encounter: 12:50 - Assessment and plan (1) Cellulitis Current Visit: No Status: Acute Assessment and plan: November 09. Continue IV doxycycline and vancomycin with lactobacillus. Anticipate discharge November 12. Qualifiers: Site of cellulitis: extremity Site of cellulitis of extremity: lower extremity Laterality: unspecified laterality Qualified Code(s): L03.119 - Cellulitis of unspecified part of limb (2) Hypertension Current Visit: No Status: Chronic Assessment and plan: November 09. Continue Zestril. Blood pressure is generally elevated and I will change Lopressor to 100 mg twice a day. Qualifiers: Hypertension type: essential hypertension Qualified Code(s): I10 - Essential (primary) hypertension (3) Edema Current Visit: No Status: Acute Assessment and plan: November 09. Continue IV Lasix. Qualifiers: Edema type: unspecified Qualified Code(s): R60.9 - Edema, unspecified - Subjective Interval history: November 09. He was hospitalized in acute care November 04- with edema and bilateral lower leg cellulitis. He responded well to IV vancomycin and doxycycline with significant improvement in the cellulitis. He was started on IV Lasix and had significant diuresis. Zinc level returned low at 39. He was discharged to swing bed for ongoing IV antibiotic and diuretic therapy. He has no new complaints today. - Constitutional Vitals: Temp Pulse Resp BP Pulse Ox 98.6 F 68 16 154/58 97 11/09/16 11:12 11/09/16 11:12 11/09/16 11:12 11/09/16 11:12 11/09/16 11:12 Exam: There is further improvement in his edema and cellulitis. His affect is cheerful. I reviewed his medications and lab results. Internal Medicine: Result - Labs CBC & Chem 7: 11/09/16 06:00 11/09/16 06:00 Labs: Short CBC 11/09/16 Range/Units 06:00 WBC 7.5 (4.3-11.1) K/mcL Hgb 13.2 (12.9-16.9) g/dL Hct 37.2 L (37.5-50.1) % Plt Count 306 (140-400) K/mcL Neutrophils # 4.0 (1.6-8.9) K/mcL BMP 11/09/16 06:00 Creatinine 0.56 L - ABG Interpretation ABG results: PT/INR, D-dimer PT 14.0 Seconds (9.4-12.1) H 11/09/16 06:00 Consult Discharge Plan - Plan Referrals: Aliyah Rojas, SHAILESH [Primary Care Provider] - 1 week
[2016-11-09] MEDS: Zinc Sulfate 220 MG CAPSULE PO SCH (14:21)
[2016-11-10] MEDS: *HR* HYDROmorphone (PF) 1 MG/ML SYRINGE IVP PRN ×6 (01:49→23:14)
[2016-11-10] MEDS: *HR* OxyCODONE/APAP 10/325 TABLET PO PRN ×5 (03:32→21:23)
[2016-11-10] MEDS: Doxycycline 100 MG in 0.9 % Sodium Chloride Mini Bag 100 ML IVPB SCH ×2 (06:06→18:03)
[2016-11-10 06:49] LABS: BUN/Creatinine Ratio 10 (6-26); Blood Urea Nitrogen 6 mg/dL (8-26); Calcium 9.5 mg/dL (8.6-10.8); Carbon Dioxide 25 mEq/L (19-29); Chloride 91 mEq/L (98-109); Glucose 88 mg/dL (70-99); Magnesium 1.9 mg/dL (1.6-2.6); Osmolality,Calculated 267 (280-300); Potassium 3.4 mEq/L (3.5-4.5); Sodium 130 mEq/L (136-145); eGFR For African Americans > 60 (> 60); eGFR For Non-African Americans > 60 (> 60)
[2016-11-10] MEDS: Zinc Sulfate 220 MG CAPSULE PO SCH (09:06)
[2016-11-10] MEDS: Lisinopril 20 MG TABLET PO SCH (09:06)
[2016-11-10] MEDS: Famotidine 20 MG TABLET PO SCH ×2 (09:07→21:23)
[2016-11-10] MEDS: Lactobacillus 1 EACH CAP.SPRINK PO SCH ×2 (09:08→21:23)
[2016-11-10] MEDS: Furosemide 40 MG/4 ML VIAL IVP SCH (09:08)
[2016-11-10] MEDS: Vancomycin 1,250 MG in D5% in Water 250 ML IVPB SCH ×2 (09:52→22:47)
[2016-11-11] MEDS: *HR* OxyCODONE/APAP 10/325 TABLET PO PRN ×5 (01:32→21:48)
[2016-11-11] MEDS: *HR* HYDROmorphone (PF) 1 MG/ML SYRINGE IVP PRN ×4 (04:09→20:04)
[2016-11-11] MEDS: Doxycycline 100 MG in 0.9 % Sodium Chloride Mini Bag 100 ML IVPB SCH ×2 (06:13→17:30)
[2016-11-11] MEDS: Lactobacillus 1 EACH CAP.SPRINK PO SCH ×2 (09:13→20:05)
[2016-11-11] MEDS: Famotidine 20 MG TABLET PO SCH ×2 (09:13→20:05)
[2016-11-11] MEDS: Zinc Sulfate 220 MG CAPSULE PO SCH (09:13)
[2016-11-11] MEDS: Lisinopril 20 MG TABLET PO SCH (09:13)
[2016-11-11] MEDS: Furosemide 40 MG/4 ML VIAL IVP SCH (09:25)
[2016-11-11] MEDS: Vancomycin 1,250 MG in D5% in Water 250 ML IVPB SCH ×2 (09:25→20:05)
--- NOTE | 2016-11-11 17:04 | Internal Med Progress Note ---
Date of Encounter: 11/11/16 Time of Encounter: 16:50 - Assessment and plan (1) Cellulitis Current Visit: No Status: Acute Assessment and plan: November 09. Continue IV doxycycline and vancomycin with lactobacillus. Anticipate discharge November 12. November 11. Continue antibiotics and lactobacillus. Anticipate discharge home tomorrow with oral antibiotics Qualifiers: Site of cellulitis: extremity Site of cellulitis of extremity: lower extremity Laterality: unspecified laterality Qualified Code(s): L03.119 - Cellulitis of unspecified part of limb (2) Hypertension Current Visit: No Status: Chronic Assessment and plan: November 09. Continue Zestril. Blood pressure is generally elevated and I will change Lopressor to 100 mg twice a day. November 16 3. Continue Lasix, Zestril, and Lopressor. Blood pressures are acceptable Qualifiers: Hypertension type: essential hypertension Qualified Code(s): I10 - Essential (primary) hypertension (3) Edema Current Visit: No Status: Acute Assessment and plan: November 09. Continue IV Lasix. November 11. Anticipate discharge home tomorrow with oral Bumex. Qualifiers: Edema type: unspecified Qualified Code(s): R60.9 - Edema, unspecified (4) Zinc deficiency Current Visit: Yes Status: Acute Assessment and plan: November 11. Zinc level returned low at 39. He was started on zinc sulfate 220 mg daily. - Subjective Interval history: November 09. He was hospitalized in acute care November 04- with edema and bilateral lower leg cellulitis. He responded well to IV vancomycin and doxycycline with significant improvement in the cellulitis. He was started on IV Lasix and had significant diuresis. Zinc level returned low at 39. He was discharged to swing bed for ongoing IV antibiotic and diuretic therapy. He has no new complaints today. November 11. He has no new complaints. - Constitutional Vitals: Temp Pulse Resp BP Pulse Ox 97.8 F 73 16 133/65 95 11/11/16 06:41 11/11/16 06:41 11/11/16 06:41 11/11/16 06:41 11/11/16 06:41 Exam: He has further improvement in the erythema and edema of his lower legs. Affect is bright and cheerful. Reviewed his medications and lab results. Internal Medicine: Result - Labs CBC & Chem 7: 11/09/16 06:00 11/10/16 06:10 - ABG Interpretation ABG results: PT/INR, D-dimer PT 14.0 Seconds (9.4-12.1) H 11/09/16 06:00 Consult Discharge Plan - Plan Referrals: Aliyah Rojas, SHAILESH [Primary Care Provider] - 1 week
[2016-11-12] MEDS: *HR* HYDROmorphone (PF) 1 MG/ML SYRINGE IVP PRN ×2 (00:10→05:42)
[2016-11-12] MEDS: *HR* OxyCODONE/APAP 10/325 TABLET PO PRN ×2 (03:11→07:18)
[2016-11-12] MEDS: Doxycycline 100 MG in 0.9 % Sodium Chloride Mini Bag 100 ML IVPB SCH (05:42)
[2016-11-12 06:56] VITALS: BP 152/71
[2016-11-12] MEDS: Zinc Sulfate 220 MG CAPSULE PO SCH (07:50)
[2016-11-12] MEDS: Furosemide 40 MG/4 ML VIAL IVP SCH (07:50)
[2016-11-12] MEDS: Lactobacillus 1 EACH CAP.SPRINK PO SCH (07:50)
[2016-11-12] MEDS: Lisinopril 20 MG TABLET PO SCH (07:50)
[2016-11-12] MEDS: Famotidine 20 MG TABLET PO SCH (07:50)
[2016-11-12] MEDS: Vancomycin 1,250 MG in D5% in Water 250 ML IVPB SCH ×2 (09:19→09:25)
--- NOTE | 2016-11-12 10:12 | Discharge Summary ---
Date of Encounter: 11/12/16 Time of Encounter: 09:55 - Discharge Diagnosis (1) Cellulitis Priority: Primary Status: Acute Qualifiers: Site of cellulitis: extremity Site of cellulitis of extremity: lower extremity Laterality: unspecified laterality Qualified Code(s): L03.119 - Cellulitis of unspecified part of limb (2) Hypertension Priority: Secondary Status: Chronic Qualifiers: Hypertension type: essential hypertension Qualified Code(s): I10 - Essential (primary) hypertension (3) Edema Priority: Secondary Status: Acute Qualifiers: Edema type: unspecified Qualified Code(s): R60.9 - Edema, unspecified (4) Zinc deficiency Priority: Secondary Status: Acute - Discharge Medications Prescriptions: Bumetanide [Bumex] 1 mg PO DAILY #30 tablet Doxycycline 100 mg PO BID #14 capsule Lactobacillus [Culturelle] 1 each PO BID #14 cap.sprink Lisinopril [Zestril] 20 mg PO DAILY #30 tablet Metoprolol [Lopressor] 100 mg PO BID #60 tablet OxyCODONE/APAP 10/325 [Percocet 10/325 MG] 1 each PO Q4H PRN #28 tablet PRN Reason: Pain Potassium Chloride 10 meq PO BIDWM #60 tab.er.prt Zinc Sulfate 220 mg PO DAILY #30 capsule Home Medications: Clopidogrel [Plavix] 75 PO DAILY 10/23/16 [History] Nitroglycerin [Nitrostat] 0.4 mg SL 10/23/16 [History] Oxycodone HCl/Acetaminophen [Percocet 10-325 mg Tablet] 1 each PO Q4HR PRN 10/23 [History] Ranitidine HCl [Zantac] 300 mg PO BID 10/23/16 [History] Bumetanide [Bumex] 1 mg PO DAILY #30 tablet 11/12/16 [Rx] Doxycycline 100 mg PO BID #14 capsule 11/12/16 [Rx] Lactobacillus [Culturelle] 1 each PO BID #14 cap.sprink 11/12/16 [Rx] Lisinopril [Zestril] 20 mg PO DAILY #30 tablet 11/12/16 [Rx] Metoprolol [Lopressor] 100 mg PO BID #60 tablet 11/12/16 [Rx] OxyCODONE/APAP 10/325 [Percocet 10/325 MG] 1 each PO Q4H PRN #28 tablet [Rx] Potassium Chloride 10 meq PO BIDWM #60 tab.er.prt 11/12/16 [Rx] Zinc Sulfate 220 mg PO DAILY #30 capsule 11/12/16 [Rx] Allergies/Adverse Reactions: Allergies tramadol [From Ultram] Adverse Reaction (Verified 10/23/16 09:57) Dry Mucus Membranes Date of admission: 11/08/16 16:51 Primary care physician: Aliyah Rojas CNP Consults: 11/10/16 07:54 Consult to Occupational Therapy [CONS] Routine Comment: Evaluate, develop and implement POC Reason for Consult: Eval, Develop, and Implement P.O.C. Consult to Physical Therapy [CONS] Routine Comment: Evaluate, develop and implement POC Reason for Consult: Eval, Develop, and Implement P.O.C. - Patient Status Disposition: Home Health Service Functional capacity at discharge: independent ambulation Overall status at discharge: patient is progressing back to baseline - Discharge Instructions Follow Up With: Aliyah Rojas CNP [Primary Care Provider] - 1 week - Diet and Activity Activity: resume usual activities as tolerated Diet: advance to your usual diet Hospital course: Mr. Chauhan is a 61 year old male who was hospitalized in acute care November 04- with edema and bilateral lower leg cellulitis. He responded well to IV vancomycin and doxycycline with significant improvement in the cellulitis. He was started on IV Lasix and had significant diuresis. Zinc level returned low at 39. He was discharged to swing bed for ongoing IV antibiotic and diuretic therapy. He continued IV antibiotics and lactobacillus with additional improvement and cellulitis. IV Lasix was continued and his edema also improved. There were no new problems and on November 12 he was stable for discharge home. He will continue with oral doxycycline and lactobacillus for 7 days after discharge. Blood pressure medications were adjusted during acute care and swing bed stay with Lopressor increased to 100 mg twice a day and Zestril increased to 20 mg daily. Blood pressures were acceptable and he will continue these doses at home. Bumex will be prescribed for the edema and supplemental potassium will also be given. Zinc sulfate will be continued since and level returned low at 39. He will follow with his PCP Aliyah Rojas CNP within 1 week. - Time Spent with Patient Total time spent providing and/or coordinating discharge services: - Constitutional Vitals: Temp Pulse Resp BP Pulse Ox 98.1 F 71 18 152/71 94 11/12/16 06:54 11/12/16 06:54 11/12/16 06:54 11/12/16 06:54 11/12/16 06:54
--- NOTE | 2016-11-12 10:19 | Physician Discharge Referral ---
Home Health/Hosp Referral Info Transfer to: Home Health Attending Provider: Bird Provider in Charge Post Discharge: PCP (Aliyah Rojas CNP) - Diagnosis (1) Cellulitis Priority: Primary Status: Acute (2) Hypertension Priority: Secondary Status: Chronic (3) Edema Priority: Secondary Status: Acute (4) Zinc deficiency Priority: Secondary Status: Acute - Respiratory Orders Smoking Cessation: Smoking cessation has been advised. For more information, call the [place] Tobacco Quit Line at 2-720-BIOS-NOW. - Diet/Nutrition Diet/Nutrition Orders: No Added Salt (ASIF) - Activity Activity Orders: Ambulate - Services Needed Following services are medically necessary services: Nursing, Home Health Aide, Physical Therapy, Occupational Therapy - Transfer Medications Prescriptions: Bumetanide [Bumex] 1 mg PO DAILY #30 tablet Doxycycline 100 mg PO BID #14 capsule Lactobacillus [Culturelle] 1 each PO BID #14 cap.sprink Lisinopril [Zestril] 20 mg PO DAILY #30 tablet Metoprolol [Lopressor] 100 mg PO BID #60 tablet OxyCODONE/APAP 10/325 [Percocet 10/325 MG] 1 each PO Q4H PRN #28 tablet PRN Reason: Pain Potassium Chloride 10 meq PO BIDWM #60 tab.er.prt Zinc Sulfate 220 mg PO DAILY #30 capsule Home Medications: Clopidogrel [Plavix] 75 PO DAILY 10/23/16 [History] Nitroglycerin [Nitrostat] 0.4 mg SL 10/23/16 [History] Oxycodone HCl/Acetaminophen [Percocet 10-325 mg Tablet] 1 each PO Q4HR PRN 10/23 [History] Ranitidine HCl [Zantac] 300 mg PO BID 10/23/16 [History] Bumetanide [Bumex] 1 mg PO DAILY #30 tablet 11/12/16 [Rx] Doxycycline 100 mg PO BID #14 capsule 11/12/16 [Rx] Lactobacillus [Culturelle] 1 each PO BID #14 cap.sprink 11/12/16 [Rx] Lisinopril [Zestril] 20 mg PO DAILY #30 tablet 11/12/16 [Rx] Metoprolol [Lopressor] 100 mg PO BID #60 tablet 11/12/16 [Rx] OxyCODONE/APAP 10/325 [Percocet 10/325 MG] 1 each PO Q4H PRN #28 tablet [Rx] Potassium Chloride 10 meq PO BIDWM #60 tab.er.prt 11/12/16 [Rx] Zinc Sulfate 220 mg PO DAILY #30 capsule 11/12/16 [Rx] Allergies/Adverse Reactions: Allergies tramadol [From Ultram] Adverse Reaction (Verified 10/23/16 09:57) Dry Mucus Membranes Certification: Further, I certify that my clinical findings support that this patient is homebound (i.e. absences from home require considerable and taxing effort and are for medical reasons or mandaeism services or infrequently or short duration when for other reasons) because: Homebound Reason: Leaving home requires considerable and taxing effort due to condition (Impaired ambulatory ability secondary to cellulitis and edema) Attestation: My signature below is to certify that this patient is under my care and that I, or nurse practitioner, or a physician's data analysis assistant working with me, has a face-to -face encounter with this patient.
== END 2016-11-12 11:32 | disposition home or self-care (01) | DRG 945 ==
LOC: INPPIK 16:51
PROVIDERS: ADMIT Internal Medicine; ATTEND Internal Medicine

== ENCOUNTER 2020-11-06 19:07 | Inpatient (IN) ==
[2020-11-06] MEDS: *HR* OxyCODONE Immed Rel 5 MG TABLET PO PRN (21:02)
[2020-11-06] MEDS ORDERED: Acetaminophen 325 MG TABLET PO PRN (22:49)
[2020-11-06] MEDS ORDERED: polyethylene glycoL 3350 17 GM POWD.PACK PO PRN (22:51)
[2020-11-07] MEDS: *HR* OxyCODONE Immed Rel 5 MG TABLET PO PRN ×2 (02:07→08:02)
[2020-11-07] MEDS: lisinopriL 20 MG TABLET PO SCH (08:01)
[2020-11-07] MEDS: Ascorbic Acid 500 MG TABLET PO SCH ×2 (08:01→20:46)
[2020-11-07] MEDS: Sennosides 8.6 MG TABLET PO SCH (08:01)
[2020-11-07] MEDS: Pregabalin 50 MG CAPSULE PO SCH ×3 (08:01→20:46)
[2020-11-07] MEDS: Aspirin Enteric Coated 81 MG Tablet PO SCH (08:01)
[2020-11-07] MEDS: Multivit/Ca/Min/Fe/FA 1 TAB TABLET PO SCH (08:01)
[2020-11-07] MEDS: amLODIPine 5 MG TABLET PO SCH (08:01)
[2020-11-07] MEDS: Cholecalciferol (D-3) 1,000 UNIT (25MCG) TABLET PO SCH (08:02)
[2020-11-07] MEDS: *HR* OxyCODONE/APAP 10/325 TABLET PO PRN ×3 (12:59→20:53)
[2020-11-07] MEDS: *HR* OxyCODONE ER (12 HR) 10 MG TABLET PO SCH ×2 (15:53→23:51)
[2020-11-07] MEDS: Zinc Sulfate 220 MG CAPSULE PO SCH (20:46)
[2020-11-08] MEDS: *HR* OxyCODONE/APAP 10/325 TABLET PO PRN ×3 (03:21→20:20)
[2020-11-08] MEDS: *HR* OxyCODONE ER (12 HR) 10 MG TABLET PO SCH ×3 (07:55→23:45)
[2020-11-08] MEDS: Pregabalin 50 MG CAPSULE PO SCH ×3 (08:03→21:43)
[2020-11-08] MEDS: amLODIPine 5 MG TABLET PO SCH (08:03)
[2020-11-08] MEDS: Multivit/Ca/Min/Fe/FA 1 TAB TABLET PO SCH (08:03)
[2020-11-08] MEDS: Cholecalciferol (D-3) 1,000 UNIT (25MCG) TABLET PO SCH (08:03)
[2020-11-08] MEDS: Aspirin Enteric Coated 81 MG Tablet PO SCH (08:04)
[2020-11-08] MEDS: Sennosides 8.6 MG TABLET PO SCH (08:05)
[2020-11-08] MEDS: Ascorbic Acid 500 MG TABLET PO SCH ×2 (08:05→21:43)
[2020-11-08] MEDS: lisinopriL 20 MG TABLET PO SCH (08:05)
[2020-11-08] MEDS: Zinc Sulfate 220 MG CAPSULE PO SCH (21:43)
[2020-11-09] MEDS: *HR* OxyCODONE/APAP 10/325 TABLET PO PRN ×3 (01:22→15:11)
[2020-11-09 06:12] LABS: Basophils # 0.1 K/mcL (0.0-0.2); Basophils % 0.8 %; Eosinophils # 0.2 K/mcL (0.0-0.6); Eosinophils % 3.8 %; Hematocrit 23.3 % (37.5-50.1); Hemoglobin 7.3 g/dL (12.9-16.9); Immature Granulocytes % 0.2 % (0-4); Lymphocytes # 1.1 K/mcL (0.6-4.6); Lymphocytes % 18.8 %; Mean Corpuscular HGB Conc 31.3 g/dL (31.6-35.5); Mean Corpuscular Hemoglobin 28.9 pg (28.0-33.3); Mean Corpuscular Volume 92.1 fL (83.0-100.0); Mean Platelet Volume 8.9 fL (9.4-12.4); Monocytes # 0.5 K/mcL (0.0-1.3); Monocytes % 8.3 %; Neutrophils # 4.1 K/mcL (1.6-8.9); Platelet Count 334 K/mcL (140-400); Red Blood Count 2.53 M/mcL (4.19-5.50); Red Cell Distribution Width 14.2 % (11.5-14.5); Segmented Neutrophils % 68.1 %; White Blood Count 6.1 K/mcL (4.3-11.1)
[2020-11-09 06:36] LABS: BUN/Creatinine Ratio 16 (6-26); Blood Urea Nitrogen 6 mg/dL (8-23); Calcium 8.2 mg/dL (8.6-10.3); Carbon Dioxide 23 mEq/L (23-29); Chloride 107 mEq/L (98-107); Glucose 116 mg/dL (70-105); Osmolality,Calculated 285 (280-300); Potassium 4.2 mEq/L (3.5-5.1); Sodium 138 mEq/L (136-145); eGFR For African Americans > 60 (> 60); eGFR For Non-African Americans > 60 (> 60)
[2020-11-09] MEDS: amLODIPine 5 MG TABLET PO SCH (08:48)
[2020-11-09] MEDS: Sennosides 8.6 MG TABLET PO SCH (08:48)
[2020-11-09] MEDS: Cholecalciferol (D-3) 1,000 UNIT (25MCG) TABLET PO SCH (08:49)
[2020-11-09] MEDS: *HR* OxyCODONE ER (12 HR) 10 MG TABLET PO SCH ×2 (08:49→17:25)
[2020-11-09] MEDS: Ascorbic Acid 500 MG TABLET PO SCH ×2 (08:49→20:16)
[2020-11-09] MEDS: Pregabalin 50 MG CAPSULE PO SCH ×3 (08:49→20:15)
[2020-11-09] MEDS: Aspirin Enteric Coated 81 MG Tablet PO SCH (08:49)
[2020-11-09] MEDS: lisinopriL 20 MG TABLET PO SCH (08:49)
[2020-11-09] MEDS: Multivit/Ca/Min/Fe/FA 1 TAB TABLET PO SCH (08:49)
[2020-11-09] MEDS: Zinc Sulfate 220 MG CAPSULE PO SCH (20:16)
[2020-11-10] MEDS: *HR* OxyCODONE ER (12 HR) 10 MG TABLET PO SCH ×3 (00:51→15:26)
[2020-11-10] MEDS: *HR* OxyCODONE/APAP 10/325 TABLET PO PRN ×3 (06:01→20:28)
[2020-11-10 07:00] LABS: Basophils # 0.1 K/mcL (0.0-0.2); Basophils % 0.8 %; Eosinophils # 0.4 K/mcL (0.0-0.6); Eosinophils % 6.7 %; Immature Granulocytes % 0.3 % (0-4); Lymphocytes # 1.3 K/mcL (0.6-4.6); Lymphocytes % 20.8 %; Mean Corpuscular Hemoglobin 29.5 pg (28.0-33.3); Mean Corpuscular Volume 92.3 fL (83.0-100.0); Monocytes # 0.6 K/mcL (0.0-1.3); Monocytes % 8.8 %; Platelet Count 303 K/mcL (140-400); Red Blood Count 2.71 M/mcL (4.19-5.50); Red Cell Distribution Width 14.6 % (11.5-14.5); Segmented Neutrophils % 62.6 %; White Blood Count 6.4 K/mcL (4.3-11.1)
[2020-11-10] MEDS: Cholecalciferol (D-3) 1,000 UNIT (25MCG) TABLET PO SCH (08:59)
[2020-11-10] MEDS: Aspirin Enteric Coated 81 MG Tablet PO SCH (08:59)
[2020-11-10] MEDS: Ascorbic Acid 500 MG TABLET PO SCH ×2 (09:00→20:28)
[2020-11-10] MEDS: Sennosides 8.6 MG TABLET PO SCH (09:00)
[2020-11-10] MEDS: amLODIPine 5 MG TABLET PO SCH (09:00)
[2020-11-10] MEDS: lisinopriL 20 MG TABLET PO SCH (09:00)
[2020-11-10] MEDS: Pregabalin 50 MG CAPSULE PO SCH ×3 (09:01→20:28)
[2020-11-10] MEDS: Multivit/Ca/Min/Fe/FA 1 TAB TABLET PO SCH (09:02)
[2020-11-10 09:31] LABS: % Iron Saturation 10 % (20-55); Iron 26 mcg/dL (65-175); Transferrin 193 mg/dL (203-362)
[2020-11-10 09:57] LABS: Folate 16.4 ng/mL (3.0-16.0)
[2020-11-10] MEDS: Zinc Sulfate 220 MG CAPSULE PO SCH (20:28)
[2020-11-11] MEDS: *HR* OxyCODONE/APAP 10/325 TABLET PO PRN ×3 (05:32→18:02)
[2020-11-11] MEDS: *HR* OxyCODONE ER (12 HR) 10 MG TABLET PO SCH ×3 (08:20→15:22)
[2020-11-11] MEDS: Cholecalciferol (D-3) 1,000 UNIT (25MCG) TABLET PO SCH (08:21)
[2020-11-11] MEDS: Aspirin Enteric Coated 81 MG Tablet PO SCH (08:21)
[2020-11-11] MEDS: Pregabalin 50 MG CAPSULE PO SCH ×3 (08:21→20:31)
[2020-11-11] MEDS: Multivit/Ca/Min/Fe/FA 1 TAB TABLET PO SCH (08:21)
[2020-11-11] MEDS: Sennosides 8.6 MG TABLET PO SCH (08:21)
[2020-11-11] MEDS: Ascorbic Acid 500 MG TABLET PO SCH ×2 (08:22→20:31)
[2020-11-11] MEDS ORDERED: Folic Acid 1 MG TABLET PO SCH (09:00)
[2020-11-11] MEDS: Zinc Sulfate 220 MG CAPSULE PO SCH (20:31)
[2020-11-12] MEDS: *HR* OxyCODONE ER (12 HR) 10 MG TABLET PO SCH ×3 (00:09→15:18)
[2020-11-12] MEDS: *HR* OxyCODONE/APAP 10/325 TABLET PO PRN ×3 (02:47→17:50)
[2020-11-12] MEDS: Aspirin Enteric Coated 81 MG Tablet PO SCH (08:23)
[2020-11-12] MEDS: Multivit/Ca/Min/Fe/FA 1 TAB TABLET PO SCH (08:23)
[2020-11-12] MEDS: Sennosides 8.6 MG TABLET PO SCH (08:23)
[2020-11-12] MEDS: Cholecalciferol (D-3) 1,000 UNIT (25MCG) TABLET PO SCH (08:23)
[2020-11-12] MEDS: Ascorbic Acid 500 MG TABLET PO SCH ×2 (08:24→20:36)
[2020-11-12] MEDS: Pregabalin 50 MG CAPSULE PO SCH ×3 (08:24→20:36)
[2020-11-12] MEDS: lisinopriL 5 MG TABLET PO SCH (08:24)
[2020-11-12] MEDS: Zinc Sulfate 220 MG CAPSULE PO SCH (20:36)
[2020-11-13] MEDS: *HR* OxyCODONE ER (12 HR) 10 MG TABLET PO SCH ×4 (00:11→23:32)
[2020-11-13] MEDS: *HR* OxyCODONE/APAP 10/325 TABLET PO PRN ×3 (02:43→20:33)
[2020-11-13 06:36] LABS: Hematocrit 28.8 % (37.5-50.1); Hemoglobin 9.2 g/dL (12.9-16.9); Mean Corpuscular HGB Conc 31.9 g/dL (31.6-35.5); Mean Corpuscular Hemoglobin 29.2 pg (28.0-33.3); Mean Corpuscular Volume 91.4 fL (83.0-100.0); Mean Platelet Volume 9.1 fL (9.4-12.4); Platelet Count 298 K/mcL (140-400); Red Blood Count 3.15 M/mcL (4.19-5.50); Red Cell Distribution Width 14.8 % (11.5-14.5); White Blood Count 7.7 K/mcL (4.3-11.1)
[2020-11-13] MEDS: Aspirin Enteric Coated 81 MG Tablet PO SCH (07:48)
[2020-11-13] MEDS: lisinopriL 5 MG TABLET PO SCH (07:48)
[2020-11-13] MEDS: Ascorbic Acid 500 MG TABLET PO SCH ×2 (07:48→20:33)
[2020-11-13] MEDS: Cholecalciferol (D-3) 1,000 UNIT (25MCG) TABLET PO SCH (07:48)
[2020-11-13] MEDS: Pregabalin 50 MG CAPSULE PO SCH ×3 (07:48→20:33)
[2020-11-13] MEDS: Multivit/Ca/Min/Fe/FA 1 TAB TABLET PO SCH (07:49)
[2020-11-13] MEDS: Sennosides 8.6 MG TABLET PO SCH (07:49)
[2020-11-13] MEDS: Zinc Sulfate 220 MG CAPSULE PO SCH (20:32)
[2020-11-14] MEDS: *HR* OxyCODONE/APAP 10/325 TABLET PO PRN ×2 (05:32→20:40)
[2020-11-14] MEDS: Aspirin Enteric Coated 81 MG Tablet PO SCH (09:59)
[2020-11-14] MEDS: Multivit/Ca/Min/Fe/FA 1 TAB TABLET PO SCH (09:59)
[2020-11-14] MEDS: *HR* OxyCODONE ER (12 HR) 10 MG TABLET PO SCH ×2 (09:59→16:33)
[2020-11-14] MEDS: lisinopriL 5 MG TABLET PO SCH (09:59)
[2020-11-14] MEDS: Ascorbic Acid 500 MG TABLET PO SCH ×2 (10:00→20:40)
[2020-11-14] MEDS: Cholecalciferol (D-3) 1,000 UNIT (25MCG) TABLET PO SCH (10:00)
[2020-11-14] MEDS: Pregabalin 50 MG CAPSULE PO SCH ×3 (10:00→20:40)
[2020-11-14] MEDS: Sennosides 8.6 MG TABLET PO SCH (10:01)
[2020-11-14] MEDS: Zinc Sulfate 220 MG CAPSULE PO SCH (20:40)
[2020-11-15] MEDS: *HR* OxyCODONE ER (12 HR) 10 MG TABLET PO SCH ×3 (00:24→16:30)
[2020-11-15] MEDS: *HR* OxyCODONE/APAP 10/325 TABLET PO PRN ×4 (04:32→20:29)
[2020-11-15] MEDS: Pregabalin 50 MG CAPSULE PO SCH ×3 (08:09→20:29)
[2020-11-15] MEDS: lisinopriL 5 MG TABLET PO SCH (08:09)
[2020-11-15] MEDS: Cholecalciferol (D-3) 1,000 UNIT (25MCG) TABLET PO SCH (08:09)
[2020-11-15] MEDS: Multivit/Ca/Min/Fe/FA 1 TAB TABLET PO SCH (08:09)
[2020-11-15] MEDS: Aspirin Enteric Coated 81 MG Tablet PO SCH (08:09)
[2020-11-15] MEDS: Ascorbic Acid 500 MG TABLET PO SCH ×2 (08:10→20:30)
[2020-11-15] MEDS: Sennosides 8.6 MG TABLET PO SCH (08:16)
[2020-11-15] MEDS: Zinc Sulfate 220 MG CAPSULE PO SCH (20:29)
[2020-11-16] MEDS: *HR* OxyCODONE ER (12 HR) 10 MG TABLET PO SCH ×3 (00:33→16:03)
[2020-11-16] MEDS: *HR* OxyCODONE/APAP 10/325 TABLET PO PRN ×4 (06:34→23:02)
[2020-11-16] MEDS: Aspirin Enteric Coated 81 MG Tablet PO SCH (08:04)
[2020-11-16] MEDS: Pregabalin 50 MG CAPSULE PO SCH ×3 (08:04→20:28)
[2020-11-16] MEDS: Cholecalciferol (D-3) 1,000 UNIT (25MCG) TABLET PO SCH (08:04)
[2020-11-16] MEDS: Multivit/Ca/Min/Fe/FA 1 TAB TABLET PO SCH (08:04)
[2020-11-16] MEDS: Sennosides 8.6 MG TABLET PO SCH (08:05)
[2020-11-16] MEDS: lisinopriL 5 MG TABLET PO SCH (08:05)
[2020-11-16] MEDS: Ascorbic Acid 500 MG TABLET PO SCH ×2 (08:05→20:28)
[2020-11-16] MEDS: Zinc Sulfate 220 MG CAPSULE PO SCH (20:28)
[2020-11-17] MEDS: *HR* OxyCODONE ER (12 HR) 10 MG TABLET PO SCH ×4 (00:13→23:47)
[2020-11-17] MEDS: *HR* OxyCODONE/APAP 10/325 TABLET PO PRN ×3 (03:28→18:12)
[2020-11-17] MEDS: Ascorbic Acid 500 MG TABLET PO SCH ×2 (09:34→20:55)
[2020-11-17] MEDS: Multivit/Ca/Min/Fe/FA 1 TAB TABLET PO SCH (09:34)
[2020-11-17] MEDS: Sennosides 8.6 MG TABLET PO SCH (09:35)
[2020-11-17] MEDS: Pregabalin 50 MG CAPSULE PO SCH ×3 (09:35→20:56)
[2020-11-17] MEDS: Aspirin Enteric Coated 81 MG Tablet PO SCH (09:35)
[2020-11-17] MEDS: lisinopriL 5 MG TABLET PO SCH (09:36)
[2020-11-17] MEDS: Cholecalciferol (D-3) 1,000 UNIT (25MCG) TABLET PO SCH (09:41)
[2020-11-17] MEDS: Zinc Sulfate 220 MG CAPSULE PO SCH (20:55)
[2020-11-18] MEDS: *HR* OxyCODONE/APAP 10/325 TABLET PO PRN ×4 (03:26→21:14)
[2020-11-18] MEDS: Cholecalciferol (D-3) 1,000 UNIT (25MCG) TABLET PO SCH (08:25)
[2020-11-18] MEDS: Multivit/Ca/Min/Fe/FA 1 TAB TABLET PO SCH (08:25)
[2020-11-18] MEDS: Ascorbic Acid 500 MG TABLET PO SCH ×2 (08:25→20:29)
[2020-11-18] MEDS: Aspirin Enteric Coated 81 MG Tablet PO SCH (08:25)
[2020-11-18] MEDS: Pregabalin 50 MG CAPSULE PO SCH ×3 (08:25→20:29)
[2020-11-18] MEDS: Sennosides 8.6 MG TABLET PO SCH ×2 (08:25→08:30)
[2020-11-18] MEDS: *HR* OxyCODONE ER (12 HR) 10 MG TABLET PO SCH ×2 (08:25→15:17)
[2020-11-18] MEDS: lisinopriL 5 MG TABLET PO SCH (08:25)
[2020-11-18 10:58] LABS: Hematocrit 28.7 % (37.5-50.1); Hemoglobin 9.1 g/dL (12.9-16.9); Mean Corpuscular HGB Conc 31.7 g/dL (31.6-35.5); Mean Corpuscular Hemoglobin 29.4 pg (28.0-33.3); Mean Corpuscular Volume 92.9 fL (83.0-100.0); Mean Platelet Volume 9.4 fL (9.4-12.4); Platelet Count 217 K/mcL (140-400); Red Blood Count 3.09 M/mcL (4.19-5.50); Red Cell Distribution Width 15.1 % (11.5-14.5); White Blood Count 7.2 K/mcL (4.3-11.1)
[2020-11-18 11:12] LABS: Alanine Aminotransferase 31 Units/L (7-52); Albumin 3.5 g/dL (3.5-5.7); Alkaline Phosphatase 209 Units/L (34-104); Aspartate Amino Transferase 45 Units/L (13-39); BUN/Creatinine Ratio 12 (6-26); Bilirubin,Total 0.4 mg/dL (0.3-1.0); Blood Urea Nitrogen 7 mg/dL (8-23); Calcium 8.9 mg/dL (8.6-10.3); Carbon Dioxide 24 mEq/L (23-29); Chloride 104 mEq/L (98-107); Globulin 3.6 g/dL (2.4-3.5); Glucose 109 mg/dL (70-105); Osmolality,Calculated 281 (280-300); Potassium 3.9 mEq/L (3.5-5.1); Sodium 136 mEq/L (136-145); Total Protein 7.1 g/dL (6.4-8.9); eGFR For African Americans > 60 (> 60); eGFR For Non-African Americans > 60 (> 60)
[2020-11-18] MEDS: Zinc Sulfate 220 MG CAPSULE PO SCH (20:29)
[2020-11-19] MEDS: *HR* OxyCODONE ER (12 HR) 10 MG TABLET PO SCH ×2 (00:08→07:47)
[2020-11-19] MEDS: *HR* OxyCODONE/APAP 10/325 TABLET PO PRN ×2 (02:51→10:39)
[2020-11-19 05:57] VITALS: BP 127/53
[2020-11-19] MEDS: Ascorbic Acid 500 MG TABLET PO SCH (07:46)
[2020-11-19] MEDS: Multivit/Ca/Min/Fe/FA 1 TAB TABLET PO SCH (07:46)
[2020-11-19] MEDS: Aspirin Enteric Coated 81 MG Tablet PO SCH (07:46)
[2020-11-19] MEDS: Pregabalin 50 MG CAPSULE PO SCH (07:47)
[2020-11-19] MEDS: Cholecalciferol (D-3) 1,000 UNIT (25MCG) TABLET PO SCH (07:47)
[2020-11-19] MEDS: lisinopriL 5 MG TABLET PO SCH (07:47)
[2020-11-19] MEDS: Sennosides 8.6 MG TABLET PO SCH (07:47)
== END 2020-11-19 11:41 | disposition home health service (06) | DRG 945 ==
LOC: INPPIK 19:33
PROVIDERS: ADMIT Family Medicine; ATTEND Family Medicine